=== PATIENT | male | born 1970 | race Caucasian/White ===

== ENCOUNTER 2021-09-11 10:31 | Inpatient (IN) | payer OTHER, SELFPAY ==
[2021-09-11 11:01] VITALS: BP 99/59; PULSE 92; RESP 18; TEMP 36.3; O2SAT 98; BMI 36.6
[2021-09-11 11:40] LABS: Basophils % 0.3 %; Eosinophils # 0.1 10^3/uL (0.0-0.8); Eosinophils % 0.6 %; Hematocrit 34.6 % (42.0-52.0); Hemoglobin 12.3 g/dL (11.7-16.6); Lymphocytes # 0.5 10^3/uL (0.8-4.8); Lymphocytes % 4.1 %; Mean Corpuscular HGB Conc 35.5 g/dL (30.0-36.0); Mean Corpuscular Hemoglobin 32.9 pg (28.0-34.0); Mean Corpuscular Volume 92.5 fl (80-94); Mean Platelet Volume 10.6 fL (7.4-10.4); Monocytes # 0.8 10^3/uL (0.2-0.9); Monocytes % 6.7 %; Neutrophils # 9.79 10^3/uL (1.8-7.7); Neutrophils % 86.9 %; Nucleated Red Blood Cells % 0 %; Platelet Count 147 10^3/cmm (130-400); Red Blood Count 3.74 10^6/uL (4.1-5.3); White Blood Count 11.3 10^3/uL (4.0-10.0)
--- NOTE | 2021-09-11 11:44 | ECG_ITS ---
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 Measurements Intervals [place] Rate: 94 P: 32 [place]: 180 QRS: -30 QRSD: 119 T: 9 QT: 376 QTc: 471 Interpretive Statements SINUS RHYTHM POSSIBLE ANTERIOR MYOCARDIAL INFARCTION , PROBABLY OLD [30 ms Q WAVE IN V3/V4, OR R < 0.2 mV IN V4] No previous ECG available for comparison Electronically Signed On 09-11-2021 13:00:27 CDT by Cyn Pringle M.D. [id number]
--- NOTE | 2021-09-11 11:45 | W.ED.GENADLT ---
Documented by User: Mando Vieyra MD 09/11/21 22:32 HPI - General Adult General: Chief complaint: General Medical Stated complaint: bloody stool and gums Time Seen by Provider: 09/11/21 11:36 History of Present Illness: 51-year-old presents due to reduced fluid intake. Reports blood in stool and bleeding from gums. Does report history of heavy alcohol intake. Reports recent weight loss. Denies any focal pain. Denies nausea vomiting or constipation. Reports reduced urine output. Denies dysuria. Denies chest pain or shortness of breath. Denies abdominal pain. Review of Systems Narrative: - CONSTITUTIONAL: As above - HEENT: Denies changes in vision and hearing. - RESPIRATORY: Denies SOB and cough. - CV: Denies palpitations and CP. - GI: Denies abdominal pain, nausea, vomiting and diarrhea. - : Denies dysuria and urinary frequency. - MSK: Denies myalgia and joint pain. - SKIN: Denies rash and pruritus. - NEUROLOGICAL: Denies headache, weakness, numbness and syncope. - PSYCHIATRIC: Denies suicidal ideation Physical Exam Narrative: EXAM NARRATIVE: - GENERAL: Alert and oriented x 3. No acute distress. Well-nourished. - EYES: EOMI. Anicteric. - HENT: Atraumatic, no C-spine tenderness. Moist mucous membranes. No scleral icterus. No cervical lymphadenopathy. - LUNGS: Clear to auscultation bilaterally. No accessory muscle use. Equal lung sounds bilaterally. No respiratory distress. - CARDIOVASCULAR: Regular rate and rhythm. No murmur. No JVD. - ABDOMEN: Soft, non-tender and mildly distended with fluid wave. Negative CVA tenderness bilaterally, no rebound or guarding, negative Kang sign. No palpable masses. - EXTREMITIES: No edema. Non-tender. - SKIN: Jaundice, no rashes or lesions. Warm. - NEUROLOGIC: No meningismus or focal neurological deficits. CN II-XII grossly intact. - PSYCHIATRIC: Cooperative. Appropriate mood and affect. Course Vital Signs: Vital signs: Vital Signs Temperature 97.3 F L 09/11/21 11:01 Pulse Rate 66 09/11/21 20:27 Respiratory Rate 24 H 09/11/21 20:27 Blood Pressure 102/47 09/11/21 22:32 Pulse Oximetry 92 09/11/21 20:27 [facility] - General Adult Medical Decision Making 51-year-old presents due to malaise and jaundice. There is concern for hepatorenal syndrome. 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 He has a bilirubin in the 30s and his creatinine is 7. Discussed with hepatology in ICU at [facility] and they will accept transfer but do expect a significant delay in obtaining a bed. Discussed with her facilities in the area however no other facilities with hepatology service are able to accept the patient. He has a sodium level of 123 but does not have any seizures or altered mental status. Do not believe hypertonic saline is required at this time. Hospitalist and nephrology consulted for medical management while in the ER. Patient signed out to Dr. Layne. Lab Data : 09/11/21 11:20 09/11/21 11:20 Radiology Impressions Abdomen Ultrasound 09/11/21 13:01 IMPRESSION: 1. Hepatomegaly and hepatic steatosis. 2. Contracted gallbladder with thick kwong and no stones 3. Negative right kidney 4. Cinthya hepatic ascites Abdomen/Pelvis CT 09/11/21 17:31 IMPRESSION: 1. Moderate ascites. 2. Hepatosplenomegaly. 3. Dilated portal vein and small varices consistent with portal hypertension. Chest X-Ray 09/11/21 17:51 IMPRESSION: No acute findings. Laboratory Results WBC 11.3 10^3/uL (4.0-10.0) H 09/11/21 11:20 RBC 3.74 10^6/uL (4.1-5.3) L 09/11/21 11:20 Hgb 12.3 g/dL (11.7-16.6) 09/11/21 11:20 Hct 34.6 % (42.0-52.0) L 09/11/21 11:20 MCV 92.5 fl (80-94) 09/11/21 11:20 MCH 32.9 pg (28.0-34.0) 09/11/21 11:20 MCHC 35.5 g/dL (30.0-36.0) 09/11/21 11:20 RDW 15.0 % (12.1-15.1) 09/11/21 11:20 Plt Count 147 10^3/cmm (130-400) 09/11/21 11:20 MPV 10.6 fL (7.4-10.4) H 09/11/21 11:20 Neut % (Auto) 86.9 % 09/11/21 11:20 Lymph % (Auto) 4.1 % 09/11/21 11:20 [place] % (Auto) 6.7 % 09/11/21 11:20 Eos % (Auto) 0.6 % 09/11/21 11:20 Baso % (Auto) 0.3 % 09/11/21 11:20 Neut # (Auto) 9.79 10^3/uL (1.8-7.7) H 09/11/21 11:20 Lymph # (Auto) 0.5 10^3/uL (0.8-4.8) L 09/11/21 11:20 [place] # (Auto) 0.8 10^3/uL (0.2-0.9) 09/11/21 11:20 Eos # (Auto) 0.1 10^3/uL (0.0-0.8) 09/11/21 11:20 Baso # (Auto) 0.0 10^3/uL (0.0-0.1) 09/11/21 11:20 Nucleated RBC % (auto) 0 % 09/11/21 11:20 Nucleated RBCs # 0.0 /100WBC 09/11/21 11:20 ESR 37 mm/hr (0-10) H 09/11/21 11:20 PT 19.90 SECONDS (12.1-14.9) H 09/11/21 11:20 INR 1.66 (0.8-1.2) H 09/11/21 11:20 APTT 47.4 SECONDS (23.9-36.7) H 09/11/21 11:20 APTT Cancelled 09/11/21 11:20 Sodium 123 mmol/L (136-145) L 09/11/21 11:20 Potassium 4.4 mmol/L (3.5-5.1) 09/11/21 11:20 Chloride 86 mmol/L (98-107) L 09/11/21 11:20 Carbon Dioxide 15 mmol/L (22-29) L 09/11/21 11:20 Anion Gap 26.4 (5-19) H 09/11/21 11:20 BUN 100 mg/dL (6-20) H* 09/11/21 11:20 Creatinine 7.0 mg/dL (0.7-1.2) H* 09/11/21 11:20 GFR Calculation 8.3 mL/min (90-130) L 09/11/21 11:20 Glucose 204 mg/dL (65-115) H 09/11/21 11:20 Estimat Average Glucose 180 09/11/21 11:20 Hemoglobin A1c 7.9 % (4.0-6.0) H 09/11/21 11:20 Calculated Osmolality 293 mOsm/kg (285-295) 09/11/21 11:20 Lactic Acid 1.7 mmol/L (0.5-2.2) 09/11/21 18:39 Uric Acid 14.2 mg/dL (3.4-7.0) H 09/11/21 11:20 Calcium 7.8 mg/dL (8.5-10.5) L 09/11/21 11:20 Ferritin 814 ng/mL (30-400) H 09/11/21 11:20 Total Bilirubin 33.9 mg/dL (0.15-1.2) H* 09/11/21 11:20 AST 118 U/L (0-40) H 09/11/21 11:20 ALT 53 U/L (0-41) H 09/11/21 11:20 Alkaline Phosphatase 570 IU/L (40-130) H 09/11/21 11:20 Ammonia 53 umol/L (16-60) 09/11/21 11:20 Creatine Kinase 23 U/L (39-308) L 09/11/21 11:20 Troponin T Baseline 23 ng/L (0-15) H 09/11/21 11:20 Troponin T 120 Minute 20.88 ng/L (0-15) H 09/11/21 13:05 Delta Troponin T -2.12 ABS# (0-10) L 09/11/21 13:05 Troponin T Hi Sens 6Hr 21.76 ng/L (0-15) H 09/11/21 17:30 Troponin T Hi Sens 6Hr Delta -1.24 ng/L (0-12) L 09/11/21 17:30 C-Reactive Protein 77.1 mg/L (0.0-4.9) H 09/11/21 17:30 Total Protein 6.2 g/dL (6.6-8.7) L 09/11/21 11:20 Albumin 2.5 g/dL (3.5-5.2) L 09/11/21 11:20 Globulin 3.7 g/dL (1.3-4.6) 09/11/21 11:20 Triglycerides 338 mg/dL (0-150) H 09/11/21 11:20 Cholesterol 162 mg/dL (0-200) 09/11/21 11:20 LDL Cholesterol, Calc 89 mg/dL (50-129) 09/11/21 11:20 HDL Cholesterol 5 mg/dL (60-100) L 09/11/21 11:20 LDL/HDL Ratio 17.80 RATIO (0.00-3.22) H 09/11/21 11:20 Cholesterol/HDL Ratio 32.40 mg/dL (1.0-5.00) H 09/11/21 11:20 Lipase 68 U/L (13-60) H 09/11/21 11:20 Procalcitonin 4.00 ng/mL (0-0.5) H 09/11/21 17:30 TSH 2.58 uIU/mL (0.27-4.20) 09/11/21 11:20 Urine Color Angie (Yellow) 09/11/21 12:10 Urine Appearance Sl hazy (CLEAR) 09/11/21 12:10 Urine pH 5 (5-7) 09/11/21 12:10 Ur Specific [place] 1.020 (1.005-1.030) 09/11/21 12:10 Urine Protein Neg (Negative) 09/11/21 12:10 Urine Glucose (UA) Trace (Normal) H 09/11/21 12:10 Urine Ketones Negative (Negative) 09/11/21 12:10 Urine Blood 2+ (Negative) H 09/11/21 12:10 Urine Nitrate Negative (Negative) 09/11/21 12:10 Urine Bilirubin 3+ (Negative) H 09/11/21 12:10 Urine Urobilinogen 4 mg/dL (Negative) H 09/11/21 12:10 Ur Leukocyte Esterase Negative (Negative) 09/11/21 12:10 Urine RBC 0-4 /hpf (0-2) H 09/11/21 12:10 Urine WBC 0-4 /hpf (0-5) H 09/11/21 12:10 Ur Squamous Epith Cells 0-4 /hpf (0-5) H 09/11/21 12:10 Amorphous Sediment 1+ /hpf 09/11/21 12:10 Urine Bacteria 1+ /hpf (NONE) H 09/11/21 12:10 Coarse Granular Casts 10-15 /lpf H 09/11/21 12:10 U Random Total Protein 54 mg/dL 09/11/21 12:10 Ur Random Sodium 20 mmol/L 09/11/21 12:10 Urine Creatinine 148 mg/dL (39-259) 09/11/21 12:10 Protein/Creatinin Ratio 0.36 mg/mg CR 09/11/21 12:10 Salicylates < 0.3 mg/dL (3-10) L 09/11/21 17:30 Urine Opiates Screen Negative ng/mL (Negative) 09/11/21 12:10 Acetaminophen < 5.0 ug/mL (10-30) L 09/11/21 17:30 Ur Barbiturates Screen Negative ng/mL (Negative) 09/11/21 12:10 Ur Phencyclidine Scrn Negative ng/mL (Negative) 09/11/21 12:10 Ur Amphetamines Screen Negative ng/mL (Negative) 09/11/21 12:10 U Benzodiazepines Scrn Negative ng/mL (Negative) 09/11/21 12:10 Urine Cocaine Screen Negative ng/mL (Negative) 09/11/21 12:10 U Marijuana (THC) Screen Negative ng/mL (Negative) 09/11/21 12:10 Ethyl Alcohol < 10 mg/dL (0-10) 09/11/21 11:20 Ethyl Alcohol Cancelled 09/11/21 11:20 Hepatitis A IgM Ab Non-reactive (Nonreactive) 09/11/21 11:20 Hep Bs Antigen Non-reactive (Nonreactive) 09/11/21 11:20 Hep B Core IgM Ab Non-reactive (Nonreactive) 09/11/21 11:20 Hepatitis C Antibody Non-reactive (Nonreactive) 09/11/21 11:20 HIV 1&2 Ab & HIV 1 Ag Non-reactive (Non-Reactiv) 09/11/21 11:20 HIV 1&2 Antibody Non-reactive (Non-Reactiv) 09/11/21 11:20 EKG Data EKG 1: Computer generated interpretation: Abdomen Ultrasound 09/11/21 13:01 IMPRESSION: 1. Hepatomegaly and hepatic steatosis. 2. Contracted gallbladder with thick kwong and no stones 3. Negative right kidney 4. Cinthya hepatic ascites Abdomen/Pelvis CT 09/11/21 17:31 IMPRESSION: 1. Moderate ascites. 2. Hepatosplenomegaly. 3. Dilated portal vein and small varices consistent with portal hypertension. Chest X-Ray 09/11/21 17:51 IMPRESSION: No acute findings. Other EKG comments: Sinus rhythm, rate of 94, no sign of acute ischemia or other acute abnormality. Discharge Plan Discharge Patient Disposition: Admitted As Inpatient Admit Provider: Marni Mosquera Clinical Impression: Hepatorenal syndrome Condition: Critical Coding Level of Care Code ED Rubber Calender Helper for Chg Fwd Documented by User: Turner Layne DO 09/12/21 02:26 HPI - General Adult General: Chief complaint: General Medical Stated complaint: bloody stool and gums Time Seen by Provider: 09/11/21 11:36 Course Vital Signs: Vital signs: Vital Signs Temperature 97.3 F L 09/11/21 11:01 Pulse Rate 66 09/11/21 20:27 Respiratory Rate 24 H 09/11/21 20:27 Blood Pressure 102/47 09/11/21 22:32 Pulse Oximetry 92 09/11/21 20:27 MDM - General Adult Medical Decision Making 51-year-old presents due to malaise and jaundice. There is concern for hepatorenal syndrome. 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 He has a bilirubin in the 30s and his creatinine is 7. Discussed with hepatology in ICU at [facility] and they will accept transfer but do expect a significant delay in obtaining a bed. Discussed with her facilities in the area however no other facilities with hepatology service are able to accept the patient. He has a sodium level of 123 but does not have any seizures or altered mental status. Do not believe hypertonic saline is required at this time. Hospitalist and nephrology consulted for medical management while in the ER. Patient signed out to Dr. Layne. 51-year-old male checked out to me at shift change by the previous physician. This gentleman has hepatorenal syndrome. His mortality is high. We spoke with [facility] again. He is #28 in line for an ICU bed there. We made calls to [facility] in [place], [facility], and others. No beds are available. I spoke with our hospitalist team. She had a long conversation with the patient and his . They are prepared for mortal outcome. They wish not to be transferred. They wish to be admitted to this facility, for stabilization. If his parameters and clinical status or not improving, he has agreed to go home on hospice. Hospitalist is writing admission orders on this patient accordingly. Lab Data : 09/11/21 11:20 09/11/21 11:20 Radiology Impressions Abdomen Ultrasound 09/11/21 13:01 IMPRESSION: 1. Hepatomegaly and hepatic steatosis. 2. Contracted gallbladder with thick kwong and no stones 3. Negative right kidney 4. Cinthya hepatic ascites Abdomen/Pelvis CT 09/11/21 17:31 IMPRESSION: 1. Moderate ascites. 2. Hepatosplenomegaly. 3. Dilated portal vein and small varices consistent with portal hypertension. Chest X-Ray 09/11/21 17:51 IMPRESSION: No acute findings. Laboratory Results WBC 11.3 10^3/uL (4.0-10.0) H 09/11/21 11:20 RBC 3.74 10^6/uL (4.1-5.3) L 09/11/21 11:20 Hgb 12.3 g/dL (11.7-16.6) 09/11/21 11:20 Hct 34.6 % (42.0-52.0) L 09/11/21 11:20 MCV 92.5 fl (80-94) 09/11/21 11:20 MCH 32.9 pg (28.0-34.0) 09/11/21 11:20 MCHC 35.5 g/dL (30.0-36.0) 09/11/21 11:20 RDW 15.0 % (12.1-15.1) 09/11/21 11:20 Plt Count 147 10^3/cmm (130-400) 09/11/21 11:20 MPV 10.6 fL (7.4-10.4) H 09/11/21 11:20 Neut % (Auto) 86.9 % 09/11/21 11:20 Lymph % (Auto) 4.1 % 09/11/21 11:20 [place] % (Auto) 6.7 % 09/11/21 11:20 Eos % (Auto) 0.6 % 09/11/21 11:20 Baso % (Auto) 0.3 % 09/11/21 11:20 Neut # (Auto) 9.79 10^3/uL (1.8-7.7) H 09/11/21 11:20 Lymph # (Auto) 0.5 10^3/uL (0.8-4.8) L 09/11/21 11:20 [place] # (Auto) 0.8 10^3/uL (0.2-0.9) 09/11/21 11:20 Eos # (Auto) 0.1 10^3/uL (0.0-0.8) 09/11/21 11:20 Baso # (Auto) 0.0 10^3/uL (0.0-0.1) 09/11/21 11:20 Nucleated RBC % (auto) 0 % 09/11/21 11:20 Nucleated RBCs # 0.0 /100WBC 09/11/21 11:20 ESR 37 mm/hr (0-10) H 09/11/21 11:20 PT 19.90 SECONDS (12.1-14.9) H 09/11/21 11:20 INR 1.66 (0.8-1.2) H 09/11/21 11:20 APTT 47.4 SECONDS (23.9-36.7) H 09/11/21 11:20 APTT Cancelled 09/11/21 11:20 Sodium 123 mmol/L (136-145) L 09/11/21 11:20 Potassium 4.4 mmol/L (3.5-5.1) 09/11/21 11:20 Chloride 86 mmol/L (98-107) L 09/11/21 11:20 Carbon Dioxide 15 mmol/L (22-29) L 09/11/21 11:20 Anion Gap 26.4 (5-19) H 09/11/21 11:20 BUN 100 mg/dL (6-20) H* 09/11/21 11:20 Creatinine 7.0 mg/dL (0.7-1.2) H* 09/11/21 11:20 GFR Calculation 8.3 mL/min (90-130) L 09/11/21 11:20 Glucose 204 mg/dL (65-115) H 09/11/21 11:20 Estimat Average Glucose 180 09/11/21 11:20 Hemoglobin A1c 7.9 % (4.0-6.0) H 09/11/21 11:20 Calculated Osmolality 293 mOsm/kg (285-295) 09/11/21 11:20 Lactic Acid 1.7 mmol/L (0.5-2.2) 09/11/21 18:39 Uric Acid 14.2 mg/dL (3.4-7.0) H 09/11/21 11:20 Calcium 7.8 mg/dL (8.5-10.5) L 09/11/21 11:20 Ferritin 814 ng/mL (30-400) H 09/11/21 11:20 Total Bilirubin 33.9 mg/dL (0.15-1.2) H* 09/11/21 11:20 AST 118 U/L (0-40) H 09/11/21 11:20 ALT 53 U/L (0-41) H 09/11/21 11:20 Alkaline Phosphatase 570 IU/L (40-130) H 09/11/21 11:20 Ammonia 53 umol/L (16-60) 09/11/21 11:20 Creatine Kinase 23 U/L (39-308) L 09/11/21 11:20 Troponin T Baseline 23 ng/L (0-15) H 09/11/21 11:20 Troponin T 120 Minute 20.88 ng/L (0-15) H 09/11/21 13:05 Delta Troponin T -2.12 ABS# (0-10) L 09/11/21 13:05 Troponin T Hi Sens 6Hr 21.76 ng/L (0-15) H 09/11/21 17:30 Troponin T Hi Sens 6Hr Delta -1.24 ng/L (0-12) L 09/11/21 17:30 C-Reactive Protein 77.1 mg/L (0.0-4.9) H 09/11/21 17:30 Total Protein 6.2 g/dL (6.6-8.7) L 09/11/21 11:20 Albumin 2.5 g/dL (3.5-5.2) L 09/11/21 11:20 Globulin 3.7 g/dL (1.3-4.6) 09/11/21 11:20 Triglycerides 338 mg/dL (0-150) H 09/11/21 11:20 Cholesterol 162 mg/dL (0-200) 09/11/21 11:20 LDL Cholesterol, Calc 89 mg/dL (50-129) 09/11/21 11:20 HDL Cholesterol 5 mg/dL (60-100) L 09/11/21 11:20 LDL/HDL Ratio 17.80 RATIO (0.00-3.22) H 09/11/21 11:20 Cholesterol/HDL Ratio 32.40 mg/dL (1.0-5.00) H 09/11/21 11:20 Lipase 68 U/L (13-60) H 09/11/21 11:20 Procalcitonin 4.00 ng/mL (0-0.5) H 09/11/21 17:30 TSH 2.58 uIU/mL (0.27-4.20) 09/11/21 11:20 Urine Color Angie (Yellow) 09/11/21 12:10 Urine Appearance Sl hazy (CLEAR) 09/11/21 12:10 Urine pH 5 (5-7) 09/11/21 12:10 Ur Specific [place] 1.020 (1.005-1.030) 09/11/21 12:10 Urine Protein Neg (Negative) 09/11/21 12:10 Urine Glucose (UA) Trace (Normal) H 09/11/21 12:10 Urine Ketones Negative (Negative) 09/11/21 12:10 Urine Blood 2+ (Negative) H 09/11/21 12:10 Urine Nitrate Negative (Negative) 09/11/21 12:10 Urine Bilirubin 3+ (Negative) H 09/11/21 12:10 Urine Urobilinogen 4 mg/dL (Negative) H 09/11/21 12:10 Ur Leukocyte Esterase Negative (Negative) 09/11/21 12:10 Urine RBC 0-4 /hpf (0-2) H 09/11/21 12:10 Urine WBC 0-4 /hpf (0-5) H 09/11/21 12:10 Ur Squamous Epith Cells 0-4 /hpf (0-5) H 09/11/21 12:10 Amorphous Sediment 1+ /hpf 09/11/21 12:10 Urine Bacteria 1+ /hpf (NONE) H 09/11/21 12:10 Coarse Granular Casts 10-15 /lpf H 09/11/21 12:10 U Random Total Protein 54 mg/dL 09/11/21 12:10 Ur Random Sodium 20 mmol/L 09/11/21 12:10 Urine Creatinine 148 mg/dL (39-259) 09/11/21 12:10 Protein/Creatinin Ratio 0.36 mg/mg CR 09/11/21 12:10 Salicylates < 0.3 mg/dL (3-10) L 09/11/21 17:30 Urine Opiates Screen Negative ng/mL (Negative) 09/11/21 12:10 Acetaminophen < 5.0 ug/mL (10-30) L 09/11/21 17:30 Ur Barbiturates Screen Negative ng/mL (Negative) 09/11/21 12:10 Ur Phencyclidine Scrn Negative ng/mL (Negative) 09/11/21 12:10 Ur Amphetamines Screen Negative ng/mL (Negative) 09/11/21 12:10 U Benzodiazepines Scrn Negative ng/mL (Negative) 09/11/21 12:10 Urine Cocaine Screen Negative ng/mL (Negative) 09/11/21 12:10 U Marijuana (THC) Screen Negative ng/mL (Negative) 09/11/21 12:10 Ethyl Alcohol < 10 mg/dL (0-10) 09/11/21 11:20 Ethyl Alcohol Cancelled 09/11/21 11:20 Hepatitis A IgM Ab Non-reactive (Nonreactive) 09/11/21 11:20 Hep Bs Antigen Non-reactive (Nonreactive) 09/11/21 11:20 Hep B Core IgM Ab Non-reactive (Nonreactive) 09/11/21 11:20 Hepatitis C Antibody Non-reactive (Nonreactive) 09/11/21 11:20 HIV 1&2 Ab & HIV 1 Ag Non-reactive (Non-Reactiv) 09/11/21 11:20 HIV 1&2 Antibody Non-reactive (Non-Reactiv) 09/11/21 11:20 EKG Data EKG 1: Computer generated interpretation: Abdomen Ultrasound 09/11/21 13:01 IMPRESSION: 1. Hepatomegaly and hepatic steatosis. 2. Contracted gallbladder with thick kwong and no stones 3. Negative right kidney 4. Cinthya hepatic ascites Abdomen/Pelvis CT 09/11/21 17:31 IMPRESSION: 1. Moderate ascites. 2. Hepatosplenomegaly. 3. Dilated portal vein and small varices consistent with portal hypertension. Chest X-Ray 09/11/21 17:51 IMPRESSION: No acute findings. Discharge Plan Discharge Patient Disposition: Admitted As Inpatient Admit Provider: Marni Mosquera Clinical Impression: Hepatorenal syndrome Condition: Critical Coding Level of Care Code ED Rubber Calender Helper for Aneta Farias
[2021-09-11 12:12] LABS: Ammonia 53 umol/L (16-60)
[2021-09-11 12:13] LABS: INR 1.66 (0.8-1.2)
[2021-09-11 12:14] LABS: Partial Thromboplastin Time 47.4 SECONDS (23.9-36.7)
[2021-09-11 12:16] LABS: Alanine Aminotransferase 53 U/L (0-41); Albumin Level 2.5 g/dL (3.5-5.2); Alkaline Phosphatase 570 IU/L (40-130); Anion Gap 26.4 (5-19); Aspartate Amino Transferase 118 U/L (0-40); Calcium 7.8 mg/dL (8.5-10.5); Carbon Dioxide 15 mmol/L (22-29); Chloride 86 mmol/L (98-107); Globulin 3.7 g/dL (1.3-4.6); Glomerular Filtration Rate 8.3 mL/min (90-130); Glucose 204 mg/dL (65-115); Lipase 68 U/L (13-60); Osmolality Calculated 293 mOsm/kg (285-295); Potassium 4.4 mmol/L (3.5-5.1); Sodium 123 mmol/L (136-145); Total Protein 6.2 g/dL (6.6-8.7)
[2021-09-11 12:18] LABS: Troponin(5th) Baseline 23 ng/L (0-15)
[2021-09-11 12:30] LABS: Alcohol Level < 10 mg/dL (0-10)
[2021-09-11 12:31] LABS: Blood Urea Nitrogen 100 mg/dL (6-20); Total Bilirubin 33.9 mg/dL (0.15-1.2)
--- NOTE | 2021-09-11 13:01 | USR_ITS ---
PROCEDURE INFORMATION: Exam: US Abdomen, Limited; Right Upper Quadrant Exam date and time: 09/11/2021 1:18 PM Age: 51 years old Clinical indication: Abdominal pain; Acute; Additional info: Liver failure TECHNIQUE: Imaging protocol: Real time ultrasound of the abdomen with image documentation. Limited exam focused on the right upper quadrant. COMPARISON: No relevant prior studies available. FINDINGS: Liver: There is diffuse increased echogenicity consistent with hepatic steatosis. The liver span is 22 cm consistent with hepatomegaly. No masses. There is moderate volume Cinthya hepatic ascites. Gallbladder: Contracted No gallstones. GB wall measures 5.6 mm. Negative Kang Biliary ducts: Normal. No stones. CBD 6 mm Pancreas: Visualized pancreas is unremarkable. Right kidney: Normal. No mass. No hydronephrosis. 11.8 cm x 6.3 cm x 6.8 cm US/US abdomen limited [id number] IMPRESSION: 1. Hepatomegaly and hepatic steatosis. 2. Contracted gallbladder with thick kwong and no stones 3. Negative right kidney 4. Cinthya hepatic ascites
[2021-09-11 13:11] LABS: Bilirubin Urine 3+ (Negative); Blood Urine 2+ (Negative); Glucose Urine UA Trace (Normal); Ketones Urine Negative (Negative); Leukocyte Esterase Urine Negative (Negative); Nitrate Urine Negative (Negative); Protein Urine Neg (Negative); RBC Urine 0-4 /hpf (0-2); Urine Appearance SL Hazy (CLEAR); Urine Color Amber (Yellow); Urobilinogen Urine 4 mg/dL (Negative); pH Urine 5 (5-7)
[2021-09-11 13:12] LABS: Add Urine Culture? No; Amorphous Sediment Urine 1+ /hpf; Bacteria Urine 1+ /hpf; Squamous Epithelial Cell Urine 0-4 /hpf (0-5); WBC Urine 0-4 /hpf (0-5)
--- NOTE | 2021-09-11 13:44 | ECG_ITS ---
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 Measurements Intervals [place] Rate: 92 P: 30 GA: 196 QRS: -24 QRSD: 121 T: 16 QT: 378 QTc: 469 Interpretive Statements SINUS RHYTHM POSSIBLE ANTERIOR MYOCARDIAL INFARCTION , PROBABLY OLD [30 ms Q WAVE IN V3/V4, OR R < 0.2 mV IN V4] Compared to ECG 09/11/2021 11:49:11 No significant changes Electronically Signed On 09-12-2021 21:33:37 CDT by Cyn Pringle M.D. [id number]
[2021-09-11 13:57] LABS: Troponin 5 2HR 20.88 ng/L (0-15)
[2021-09-11 14:03] LABS: Troponin 5 2HR Delta -2.12 ABS# (0-10)
[2021-09-11 15:39] VITALS: BP 106/62; PULSE 92; RESP 18; O2SAT 99
--- NOTE | 2021-09-11 17:31 | CTR_ITS ---
PROCEDURE INFORMATION: Exam: CT Abdomen And Pelvis Without Contrast Exam date and time: 09/11/2021 7:03 PM Age: 51 years old Clinical indication: Condition or disease; Liver condition; Other: Jaundice; Additional info: Liver failure TECHNIQUE: Imaging protocol: Computed tomography of the abdomen and pelvis without contrast. Radiation optimization: All CT scans at this facility use at least one of these dose optimization techniques: automated exposure control; mA and/or kV adjustment per patient size (includes targeted exams where dose is matched to clinical indication); or iterative reconstruction. COMPARISON: US abdomen limited [id number] 09/11/2021 1:18 PM RADIATION DOSE METRICS: Total DLP (mGy-cm): FINDINGS: Lungs: Lung bases are clear. Mediastinal space: There are small paraesophageal and gastric varices. There are small mesenteric varices. Liver: The liver is moderately enlarged. There is no focal liver abnormality. Gallbladder and bile ducts: There is high attenuation material within the gallbladder lumen consistent with sludge. There is no intrahepatic or extrahepatic bile duct dilation. Pancreas: The pancreas is unremarkable. Spleen: The spleen is markedly enlarged. Adrenal glands: The adrenal glands are unremarkable. Kidneys and ureters: Nonobstructive stones are seen in both kidneys. There is no hydronephrosis or ureteral dilation. Stomach and bowel: The stomach is decompressed, preventing meaningful evaluation of wall thickness. The small bowel is nondilated. The colon is unremarkable. Appendix: The appendix is normal. Intraperitoneal space: Moderate ascites. There is no free air or significant intraperitoneal free fluid. Vasculature: There is mild aortic atherosclerotic disease. Retroaortic left renal vein incidentally noted. The portal vein is dilated measuring 23 mm diameter suggesting portal hypertension. Splenic and superior mesenteric veins are also dilated. Lymph nodes: There is no lymphadenopathy in the retroperitoneum, mesentery, pelvis or inguinal regions. Urinary bladder: The urinary bladder is decompressed, preventing meaningful evaluation of wall thickness. Reproductive: The prostate and seminal vesicles are unremarkable. Bones/joints: Bones are unremarkable. Soft tissues: The abdominal wall is intact. CT/CT abdomen pelvis wo con [id number] IMPRESSION: 1. Moderate ascites. 2. Hepatosplenomegaly. 3. Dilated portal vein and small varices consistent with portal hypertension.
--- NOTE | 2021-09-11 17:44 | ECG_ITS ---
[facility] Test Date: 2021-09-11 Pat Name: Carmelo Bahena Department: Room: Gender: Male Senior Mechanical Development Engineer: : 1970 Requested By: Mando Vieyra Order Number: [id number] Maggie MD: Cyn Pringle M.D. Measurements Intervals [place] Rate: 93 P: 38 UT: 205 QRS: -30 QRSD: 118 T: 15 QT: 378 QTc: 471 Interpretive Statements SINUS RHYTHM POSSIBLE ANTERIOR MYOCARDIAL INFARCTION , PROBABLY OLD [30 ms Q WAVE IN V3/V4, OR R < 0.2 mV IN V4] Compared to ECG 09/11/2021 13:03:30 No significant changes Electronically Signed On 09-12-2021 21:32:39 CDT by Cyn Pringle M.D. [id number]
--- NOTE | 2021-09-11 17:50 | P.CONIM_ITS ---
Providers/Reason For Consult Consulting Physician/Specialty*: emergency room Reason for Consult*: medical managment History of Present Illness History of Present Illness Carmelo Bahena is a 51 year old male with a past medical history of alcoholism, who has not seen a physician in a long time, presents to [facility] due to feeling unwell, and jaundiced appearing. Patient tells me that he usually has a shot of alcohol a day, his last drink was this morning, he tells me that he is here in the hospital because he has been feeling well, and this morning he is suddenly became jaundice, felt nauseous, poor appetite so he came here to the hospital. No fevers, no chills, he has received both COVID vaccines. No history of IV drug use, no history of hepatitis C, no history of liver disease, no family history of liver disease. He tells me that he has a good heart, no personal history of CAD. No history of smoking, history of COPD. No distress hypertension. No history of kidney disease. No history of diabetes. No recent travel. Review of Systems Const: Denies: fever(s) Eyes: Denies: change in vision ENMT: Denies: nasal congestion Resp: Denies: dyspnea, productive cough, non-productive cough or wheezing GI: Denies: abdominal pain, nausea or vomiting : Denies: dysuria Musc: Denies: back pain Skin/Breast: Denies: rash Neuro: Denies: dizziness Psych: Denies: anxiety Endo: Denies: polyuria Medications/Allergies Allergies Allergy/AdvReac Type Severity Reaction Status Date / Time No Known Allergies Allergy Verified 09/11/21 11:01 Vitals/I&O/Wt Last Vital Signs Temp 97.3 F L 09/11/21 11:01 Pulse 92 09/11/21 15:39 Resp 18 09/11/21 15:39 BP 106/62 09/11/21 15:39 Pulse Ox 99 09/11/21 15:39 Weight last 48 hrs Weight 122.47 kg Physical Exam Const: COMMON NORMALS: no acute distress and patient oriented x3 HENMT: COMMON NORMALS: normocephalic HEAD & SCALP: normocephalic Eye: OTHER: jaindice appearing, scleral icterus Neck/C-Spine: COMMON NORMALS: no JVD Resp: COMMON NORMALS: normal respiratory effort, No retractions, No use of accessory muscles and clear to auscultation bilaterally AUSCULTATION: clear to auscultation bilaterally Cardio: COMMON NORMALS: no JVD, regular rate, regular rhythm, S1 normal heart sound present and S2 normal heart sound present RATE: regular rate RHYTHM: regular rhythm HEART SOUNDS: S1 normal heart sound present and S2 normal heart sound present GI: COMMON NORMALS: Normal to inspection, nondistended, normoactive bowel sounds present, Soft to palpation, non-tender, no masses and no bruits PALPATION: Yes Soft to palpation, Yes Hepatosplenomegaly present and Yes Ascites present Extremity: COMMON NORMALS: capillary refill normal, no clubbing, cyanosis or edema, no calf tenderness and no pedal edema Neuro: COMMON NORMALS: patient oriented x3 Psych: COMMON NORMALS: mental status grossly normal Data : 09/11/21 11:20 09/11/21 11:20 A&P Assessment and plan (1) Acute liver failure: Status: Acute Plan Acute failure -With elevated bilirubin, jaundice -Elevated INR -Hypoalbuminemia -Hyponatremia -Hepatorenal syndrome -Dehydration -History of alcoholism -Will order urine drug screen, AMA, VANNESA, ferritin, acute hep panel, HIV, CPK -Abdomen is distended, does have ascites, start Zosyn for possible SBP although unlikely -History of alcoholism, avoid blood thinners, avoid nephrotoxic agents -Nephrology consulted for hepatorenal syndrome, creatinine 7, no urgent need for dialysis but he might require CRRT at some point -Midodrine, IV fluids, albumin -CT scan abdomen pelvis -Cardiac echocardiogram -Will stabilize, in order to be transferred to [facility] -Full code -SCDs for DVT prophylaxis Consult Attestations Medical Necessity Statement: Patient requires hospitalization for acute liver failure will be transferred to [facility], hospitalist team was called for medical management Coding Level of Care Code Acute Tip Puncher for [facility] Diagnoses Acute liver failure K72.00
--- NOTE | 2021-09-11 17:51 | XRR_ITS ---
PROCEDURE INFORMATION: Exam: XR Chest Exam date and time: 09/11/2021 6:06 PM Age: 51 years old Clinical indication: Shortness of breath; Additional info: SOB TECHNIQUE: Imaging protocol: Radiologic exam of the chest. Views: 1 view. COMPARISON: No relevant prior studies available. FINDINGS: Lungs: Low lung volumes. There is no consolidation. Pleural spaces: Unremarkable. No pleural effusion. No pneumothorax. Heart/Mediastinum: There is mild enlargement of the cardiac silhouette. Bones/joints: Bones are unremarkable. XR/XR chest 1V portable [id number] IMPRESSION: No acute findings.
[2021-09-11] MEDS: pantoprazole 40 mg SDV IVP (18:01)
[2021-09-11] MEDS: dextrose 5%-sod chloride 0.9% 1,000 ML 50 ML IV (18:02)
[2021-09-11] MEDS: piperacillin-tazobactam 3.375 GM in sodium chloride 0.9% (plus) 50 ML IV (18:02)
--- NOTE | 2021-09-11 18:03 | PM.CONSULT ---
Providers/Reason For Consult Consulting Physician/Specialty*: Nephro Reason for Consult*: Renal Failure History of Present Illness History of Present Illness Thank for consultation, today had the pleasure of reviewing this very pleasant 51-year-old gentleman in the presence of his for evaluation of renal failure in the setting of liver failure. He has a long history of very heavy alcohol use, he drank alcohol this morning. Over the last 1 month he has felt very weak, 2 weeks ago he first noticed jaundice. He stopped urinating roughly 2 weeks ago as well. He has been out of insurance, his insurance finally got approved this week, he was due to see his primary care doctor next week, however, due to his weakness becoming too profound he is now presenting to the hospital. On arrival here he was found to have a serum creatinine of 7. No known history of acute or chronic kidney disease, has never seen a kidney specialist or required hemodialysis. No extremity edema. He does have ascites. No other hypervolemic symptoms. No other overt uremic symptoms. He is obviously not enrolled in a liver transplant program. No history of hepatitis. No other cause of potential liver damage i.e. Madhav's disease etc. No other systemic, chronic medical conditions. Blood pressure is soft today. Medications/Allergies Allergies Allergy/AdvReac Type Severity Reaction Status Date / Time No Known Allergies Allergy Verified 09/11/21 11:01 Vitals/I&O/Wt Last Vital Signs Temp 97.3 F L 09/11/21 11:01 Pulse 92 09/11/21 15:39 Resp 18 09/11/21 15:39 BP 106/62 09/11/21 15:39 Pulse Ox 99 09/11/21 15:39 Weight last 48 hrs Weight 122.47 kg Physical Exam Narrative: Constitutional: Awake, comfortable HEENT: Wet mucosa, no jvp, icteric Lungs: Bilaterally clear without discernible wheeze or rales in all lung zones CVS: S1 S2, no murmurs Abdo: Soft, BS ok, ascites Ext 4: Minimal edema, peripheral perfusion with no cyanosis Neurological: Grossly non-focal Data : 09/11/21 11:20 09/11/21 11:20 A&P Assessment and plan (1) Acute liver failure: 1. Renal failure Fully consistent with hepatorenal syndrome in the setting of advanced liver damage. Will get urine sodium, urine creatinine, CPK, uric acid, TSH. Will give combination albumin, midodrine, octreotide. I had a vince discussion with him. He is not a candidate for dialysis. This will not be offered. Strict I's and O's Avoid usual nephrotoxic agents Dose medication for GFR less than 15 2. Advanced liver failure. I appreciate he is pending transfer to [place] for hepatology evaluation. As he drank this morning, he would not be a candidate for liver transplant. Would monitor for DTs, defer management to medical team for this. 3. Chemistry Hyponatremia, low bicarb. These are noncritical, simply need to be monitored for the time being. 4. Disposition I appreciate he will be transferred, however, at this time his mortality risk is extremely high I would consider palliative care evaluation as he would not be a hemodialysis or transplant candidate. His was at bedside, I answered all the questions to their satisfaction. Thank you for consultation, it is a pleasure to follow these cases with you Exam and interview performed with aid of bedside RN using telemedicine Time spent 20 min inc > 50% of time in face to face counseling Lavelle Polk MD [facility] [phone] Status: Acute Coding Level of Care Code Acute [employer] Associate for [facility] Diagnoses Acute liver failure K72.00
--- NOTE | 2021-09-11 18:06 | PC.NURSE ---
EKG done at 1800 and shown to ER doctor
[2021-09-11 18:08] LABS: Hepatitis A Antibody IgM Non-Reactive (Nonreactive); Hepatitis B Core IgM Non-Reactive (Nonreactive); Hepatitis B Surface Antigen Non-Reactive (Nonreactive); Hepatitis C Virus Antibody Non-Reactive (Nonreactive)
[2021-09-11] MEDS: midodrine 5 mg TABLET 10 MG PO ×2 (18:09→22:58)
[2021-09-11 18:10] LABS: Cholesterol 162 mg/dL (0-200); HDL Cholesterol 5 mg/dL (60-100); LDL Cholesterol Calculated 89 mg/dL (50-129); Thyroid Stimulating Hormone 2.58 uIU/mL (0.27-4.20); Triglycerides 338 mg/dL (0-150)
[2021-09-11 18:19] LABS: Troponin 5 6HR 21.76 ng/L (0-15); Troponin 5 6HR Delta -1.24 ng/L (0-12)
[2021-09-11 18:23] LABS: Estmated Average Glucose 180; Hemoglobin A1C 7.9 % (4.0-6.0)
[2021-09-11 18:28] LABS: Creatine Phosphokinase 23 U/L (39-308); Ferritin 814 ng/mL (30-400); Uric Acid 14.2 mg/dL (3.4-7.0)
[2021-09-11] MEDS: octreotide 100 mcg/mL SDV 200 MCG SUBCUT ×2 (18:30→23:07)
[2021-09-11] MEDS: albumin 12.5 GM/250 ML VIAL IV ×2 (18:30→22:58)
[2021-09-11 18:41] LABS: HIV 1 & 2 Antibody Non-Reactive (Non-Reactiv); HIV 1 & 2 Antigen Non-Reactive (Non-Reactiv)
[2021-09-11 18:44] LABS: Erythrocyte Sedimentation Rate 37 mm/hr (0-10)
[2021-09-11 18:50] LABS: C Reactive Protein 77.1 mg/L (0.0-4.9)
[2021-09-11 18:51] LABS: Acetaminophen < 5.0 ug/mL (10-30); Salicylate < 0.3 mg/dL (3-10)
[2021-09-11 19:01] LABS: Lactic Sepsis W/Reflex 1.7 mmol/L (0.5-2.2)
[2021-09-11 19:18] VITALS: BP 92/54; PULSE 70; RESP 27; O2SAT 93
[2021-09-11] MEDS: folic acid 1 MG, multivitamin inj 10 ML, thiamine 100 MG in sodium chloride 0.9% 1,000 ML 252.8 MG IV (20:06)
[2021-09-11 20:27] VITALS: BP 91/51; PULSE 66; RESP 24; O2SAT 92
[2021-09-11 21:25] LABS: Amphetamines Screen Urine Negative (Negative); Barbiturates Screen Urine Negative (Negative); Benzodiazepines Screen Urine Negative (Negative); Cocaine Screen Urine Negative (Negative); Opiate Screen Urine Negative (Negative); PCP Screen Urine Negative (Negative); THC Screen Urine Negative (Negative); Urine Creatinine 148 mg/dL (39-259); Urine Random Sodium 20 mmol/L
[2021-09-11 21:26] LABS: UPRO/UCREAT Ratio 0.36 mg/mg CR; Urine Protein Random 54 mg/dL
[2021-09-11 22:32] VITALS: BP 102/47
[2021-09-12] VITALS (15 sets, daily range): BP systolic 89–113; BP diastolic 42–64; PULSE 73–86; RESP 16–18; TEMP 36.4–36.6; O2SAT 90–96
--- NOTE | 2021-09-12 00:02 | USCV_ITS ---
Carmelo Bahena Age: 51 Gender: M : 1970 Exam Date: 09/12/2021 00:19 Ordering Phys: Joaquín Benjamin MD Technologist: Martín Gonzalez Exam Location: [facility] [place] Indication: NSTEMI BP: 111 / 59 HR: 82 Rhythm: Sinus Technical Quality: Adequate MEASUREMENTS (Male / Female) Normal Values 2D ECHO LV Diastolic Diameter PLAX 4.4 cm 4.2 - 5.9 / 3.9 - 5.3 cm LV Systolic Diameter PLAX 3.0 cm IVS Diastolic Thickness 1.4 cm 0.6 - 1.0 / 0.6 - 0.9 cm IVS Systolic Thickness 1.8 cm LVPW Diastolic Thickness 1.4 cm 0.6 - 1.0 / 0.6 - 0.9 cm LVPW Systolic Thickness 1.9 cm LVOT Diameter 2.0 cm LV Ejection Fraction 2D Teich 54.4 % LV Ejection Fraction MOD 2C 60.4 % LV Ejection Fraction 2C AL 59.1 % LA Diameter 3.6 cm LA Width 4.4 cm LA Height 4.3 cm RA Width 3.4 cm RA Height 4.5 cm Aorta at Sinotubular Diameter 3.1 cm M-MODE Aortic Annulus Diameter 3.7 cm LA Ao Ratio MM 1.1 MV E Point Septal Separation 0.3 cm DOPPLER AV Peak Velocity 150.8 cm/s LVOT Peak Velocity 86.0 cm/s AV Area Cont Eq vti 1.9 cm squared AV Area Cont Eq pk 1.8 cm squared MV Area PHT 2.5 cm squared Mitral E to A Ratio 0.8 MV E' Velocity 41.0 cm/s Mitral E to MV E' Ratio 4.9 Mitral E to LV E' Lateral Ratio 4.9 Mitral E to LV E' Septal Ratio 4.9 TR Peak Velocity 145.6 cm/s TR Peak Gradient 8.5 mmHg TR Mean Velocity 100.0 cm/s TR Mean Gradient 4.9 mmHg TR Velocity Time Integral 26.2 cm PV Peak Velocity 100.0 cm/s FINDINGS Left Ventricle Normal left ventricular size, systolic function and wall thickness. Although no diagnostic regional wall motion abnormality could be identified, this possibility cannot be completely excluded based on the study. Left ventricular ejection fraction is estimated at 60 %. Normal diastolic function. Right Ventricle Normal right ventricular size and systolic function. Right ventricular systolic pressure 13 mmHg. Right Atrium Normal right atrial size. Left Atrium Normal left atrial size. Mitral Valve Structurally normal mitral valve. No mitral valve stenosis. No significant mitral valve regurgitation. Aortic Valve Probably trileaflet aortic valve. No aortic valve stenosis. No aortic valve regurgitation. Tricuspid Valve Structurally normal tricuspid valve. Trace tricuspid valve regurgitation. Pulmonic Valve Pulmonic valve not well visualized. Pericardium No pericardial effusion. Aorta Upper normal sized aortic root and proximal ascending aorta. IVC Inferior vena cava not visualized. CONCLUSIONS 1. This is a technically difficult study. 2. Normal left ventricular size, systolic function and wall thickness. Although no diagnostic regional wall motion abnormality could be identified, this possibility cannot be completely excluded based on the study. Left ventricular ejection fraction is estimated at 60 %. Normal diastolic function. 3. Normal right ventricular size and systolic function. 4. Normal pulmonary artery pressure. 5. No prior similar studies to compare. Cyn Pringle MD (Electronically Signed) Final Date: 12 September 2021 09:05 S
--- NOTE | 2021-09-12 01:11 | PM.HP ---
Providers/Chief Complaint Admitting Physician: Marni Mosquera MD Chief Complaint: bloody stool and gums History of Present Illness Carmelo Bahena is a 51 year old male who presents to the emergency room with chief complaint of not feeling well. He has been having some increasing shortness of breath with minimal exertion to the point that sometimes he struggles to get across the room. About 2 weeks ago he started noting that his eyes were getting yellow. He does drink alcohol regularly. He has no known history of liver disease nor known medical problems related to alcohol use. He has had significant change in his appetite lately with nausea. No vomiting with hematemesis. He has had some increased abdominal girth and gradual decline in his urine output. Urine has been darker in color when he has made urine. No report of any fevers. Patient indicates that he felt like that I was dying . He presented to the emergency room to see if there might be anything that could be done. In the emergency room he was found to have liver failure with bilirubin of 33 and alkaline phosphatase of 570. Transaminases were not as elevated. In addition he was noted to have BUN and creatinine of 100/7.0. Potassium was 4.4. Emergency room physician made arrangements for patient to be transferred to [facility] and subsequently consulted nephrology and hospitalist service for management in the ER while awaiting a bed. Evidently the patient and his were not aware of the plans for transfer to an outside facility prior to that arrangement. Patient was #[phone] on the wait list at [facility]. Upon learning of planned transfer they indicated that they did not wish to be transferred to [place]. ER provider who originally cared for him was available but did not speak to them about their concerns. As nighttime hospitalist, I reviewed the case and then spoke with Mr. Bahena and his at length about current clinical condition and potential treatment options. I was forthright about the poor prognosis in the setting of hepatorenal syndrome but also clear that we cannot completely predict the exact clinical course a given patient may follow. Ultimately they requested admission here rather than transfer to outside facility, with full understanding of the fact that we do not have a hydrography teacher nor access to more advanced procedures that might prolong his life a bit longer. Both Mr. Bahena and his are realistic about the situation before them and desire to see if initiation of treatment outlined previously by Dr. Polk might have any impact on renal function in particular. If there is no improvement patient indicated he would rather go home and spend his days at home with his rather than in the hospital. They would be agreeable to consideration for palliative care as well. Under the circumstances and after a long conversation, I accepted Mr. Bahena to the hospitalist service here at [facility]. Review of Systems Const: Reports: change in appetite, change in weight, fatigue, malaise and change in sleep pattern; Denies: fever(s) Eyes: Reports: yellow eyes (about 2 weeks) ENMT: Denies: throat pain or nasal congestion Card: Reports: dyspnea on exertion; Denies: chest pain Resp: Reports: dyspnea; Denies: productive cough, non-productive cough or wheezing GI: Reports: nausea and hematochezia; Denies: vomiting or hematemesis : Reports: oliguria; Denies: dysuria Musc: Reports: muscle weakness; Denies: back pain Skin/Breast: Denies: rash Neuro: Denies: dizziness Psych: Denies: anxiety Endo: Denies: polyuria Francis/Lymph: Reports: easy bleeding Medications/Allergies Home Medications Medication Instructions Recorded Confirmed Last Taken Type No Known Home Medications 09/11/21 09/11/21 Unknown History Allergies Allergy/AdvReac Type Severity Reaction Status Date / Time No Known Allergies Allergy Verified 09/11/21 11:01 PFSH Acute PFSH: Medical History (Updated 09/12/21 @ 09:59 by Marni Mosquera MD) No significant past medical history Surgical History (Updated 09/12/21 @ 09:47 by Marni Mosquera MD) No significant past surgical history Family History (Updated 09/12/21 @ 09:54 by Marni Mosquera MD) Denies family history of Liver disease Chronic kidney disease (CKD) Social History (Updated 09/12/21 @ 09:55 by Marni Mosquera MD) Alcohol intake: current Household members: spouse Marital status: Marital status details: spouse works as social service/case management for [employer] D[facility] service: Yes status details: 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[place], 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 Other PFSH information: Supplemental PFSH Information: No history of diabetes, kidney disease, liver disease, hepatitis, cardiac disease Vitals/I&O/Wt Last Vital Signs Temp 97.3 F L 09/11/21 11:01 Pulse 66 09/11/21 20:27 Resp 24 H 09/11/21 20:27 BP 102/47 09/11/21 22:32 Pulse Ox 92 09/11/21 20:27 09/11/21 09/11/21 09/12/21 14:59 22:59 06:59 Intake Total 250 / 250 Balance 250 / 250 Weight last 48 hrs Weight 122.47 kg Physical Exam Narrative: Constitutional: Awake and alert, looks fatigued, able to provide history, cooperative HEENT: Normocephalic, icteric sclera, dry mucous membranes, extraocular movements intact Neck: Supple Respiratory: Mildly tachypneic, pauses intermittently with speaking, no retractions, pursed lips Cardiovascular: Regular rhythm, 2+ radial pulse Abdomen: Soft, rotund, nontender Extremities: No pitting edema Skin: Dry, yellowish bronze appearance Neuro: Speech clear, face symmetric, no resting tremor noted, handgrip equal Psych: Normal affect, remarkable insight into his own emotional responses and belief systems as relates to current healthcare condition Data : 09/12/21 03:50 09/12/21 03:50 Other Labs: Radiology Impressions Abdomen Ultrasound 09/11/21 13:01 IMPRESSION: 1. Hepatomegaly and hepatic steatosis. 2. Contracted gallbladder with thick kwong and no stones 3. Negative right kidney 4. Cinthya hepatic ascites Abdomen/Pelvis CT 09/11/21 17:31 IMPRESSION: 1. Moderate ascites. 2. Hepatosplenomegaly. 3. Dilated portal vein and small varices consistent with portal hypertension. Chest X-Ray 09/11/21 17:51 IMPRESSION: No acute findings. Laboratory Results WBC 11.3 10^3/uL (4.0-10.0) H 09/11/21 11:20 RBC 3.74 10^6/uL (4.1-5.3) L 09/11/21 11:20 Hgb 12.3 g/dL (11.7-16.6) 09/11/21 11:20 Hct 34.6 % (42.0-52.0) L 09/11/21 11:20 MCV 92.5 fl (80-94) 09/11/21 11:20 MCH 32.9 pg (28.0-34.0) 09/11/21 11:20 MCHC 35.5 g/dL (30.0-36.0) 09/11/21 11:20 RDW 15.0 % (12.1-15.1) 09/11/21 11:20 Plt Count 147 10^3/cmm (130-400) 09/11/21 11:20 MPV 10.6 fL (7.4-10.4) H 09/11/21 11:20 Neut % (Auto) 86.9 % 09/11/21 11:20 Lymph % (Auto) 4.1 % 09/11/21 11:20 Towner % (Auto) 6.7 % 09/11/21 11:20 Eos % (Auto) 0.6 % 09/11/21 11:20 Baso % (Auto) 0.3 % 09/11/21 11:20 Neut # (Auto) 9.79 10^3/uL (1.8-7.7) H 09/11/21 11:20 Lymph # (Auto) 0.5 10^3/uL (0.8-4.8) L 09/11/21 11:20 Towner # (Auto) 0.8 10^3/uL (0.2-0.9) 09/11/21 11:20 Eos # (Auto) 0.1 10^3/uL (0.0-0.8) 09/11/21 11:20 Baso # (Auto) 0.0 10^3/uL (0.0-0.1) 09/11/21 11:20 Nucleated RBC % (auto) 0 % 09/11/21 11:20 Nucleated RBCs # 0.0 /100WBC 09/11/21 11:20 ESR 37 mm/hr (0-10) H 09/11/21 11:20 PT 19.90 SECONDS (12.1-14.9) H 09/11/21 11:20 INR 1.66 (0.8-1.2) H 09/11/21 11:20 APTT 47.4 SECONDS (23.9-36.7) H 09/11/21 11:20 APTT Cancelled 09/11/21 11:20 Sodium 123 mmol/L (136-145) L 09/11/21 11:20 Potassium 4.4 mmol/L (3.5-5.1) 09/11/21 11:20 Chloride 86 mmol/L (98-107) L 09/11/21 11:20 Carbon Dioxide 15 mmol/L (22-29) L 09/11/21 11:20 Anion Gap 26.4 (5-19) H 09/11/21 11:20 BUN 100 mg/dL (6-20) H* 09/11/21 11:20 Creatinine 7.0 mg/dL (0.7-1.2) H* 09/11/21 11:20 GFR Calculation 8.3 mL/min (90-130) L 09/11/21 11:20 Glucose 204 mg/dL (65-115) H 09/11/21 11:20 Estimat Average Glucose 180 09/11/21 11:20 Hemoglobin A1c 7.9 % (4.0-6.0) H 09/11/21 11:20 Calculated Osmolality 293 mOsm/kg (285-295) 09/11/21 11:20 Lactic Acid 1.7 mmol/L (0.5-2.2) 09/11/21 18:39 Uric Acid 14.2 mg/dL (3.4-7.0) H 09/11/21 11:20 Calcium 7.8 mg/dL (8.5-10.5) L 09/11/21 11:20 Ferritin 814 ng/mL (30-400) H 09/11/21 11:20 Total Bilirubin 33.9 mg/dL (0.15-1.2) H* 09/11/21 11:20 AST 118 U/L (0-40) H 09/11/21 11:20 ALT 53 U/L (0-41) H 09/11/21 11:20 Alkaline Phosphatase 570 IU/L (40-130) H 09/11/21 11:20 Ammonia 53 umol/L (16-60) 09/11/21 11:20 Creatine Kinase 23 U/L (39-308) L 09/11/21 11:20 Troponin T Baseline 23 ng/L (0-15) H 09/11/21 11:20 Troponin T 120 Minute 20.88 ng/L (0-15) H 09/11/21 13:05 Delta Troponin T -2.12 ABS# (0-10) L 09/11/21 13:05 Troponin T Hi Sens 6Hr 21.76 ng/L (0-15) H 09/11/21 17:30 Troponin T Hi Sens 6Hr Delta -1.24 ng/L (0-12) L 09/11/21 17:30 C-Reactive Protein 77.1 mg/L (0.0-4.9) H 09/11/21 17:30 Total Protein 6.2 g/dL (6.6-8.7) L 09/11/21 11:20 Albumin 2.5 g/dL (3.5-5.2) L 09/11/21 11:20 Globulin 3.7 g/dL (1.3-4.6) 09/11/21 11:20 Triglycerides 338 mg/dL (0-150) H 09/11/21 11:20 Cholesterol 162 mg/dL (0-200) 09/11/21 11:20 LDL Cholesterol, Calc 89 mg/dL (50-129) 09/11/21 11:20 HDL Cholesterol 5 mg/dL (60-100) L 09/11/21 11:20 LDL/HDL Ratio 17.80 RATIO (0.00-3.22) H 09/11/21 11:20 Cholesterol/HDL Ratio 32.40 mg/dL (1.0-5.00) H 09/11/21 11:20 Lipase 68 U/L (13-60) H 09/11/21 11:20 Procalcitonin 4.00 ng/mL (0-0.5) H 09/11/21 17:30 TSH 2.58 uIU/mL (0.27-4.20) 09/11/21 11:20 Urine Color Angie (Yellow) 09/11/21 12:10 Urine Appearance Sl hazy (CLEAR) 09/11/21 12:10 Urine pH 5 (5-7) 09/11/21 12:10 Ur Specific [place] 1.020 (1.005-1.030) 09/11/21 12:10 Urine Protein Neg (Negative) 09/11/21 12:10 Urine Glucose (UA) Trace (Normal) H 09/11/21 12:10 Urine Ketones Negative (Negative) 09/11/21 12:10 Urine Blood 2+ (Negative) H 09/11/21 12:10 Urine Nitrate Negative (Negative) 09/11/21 12:10 Urine Bilirubin 3+ (Negative) H 09/11/21 12:10 Urine Urobilinogen 4 mg/dL (Negative) H 09/11/21 12:10 Ur Leukocyte Esterase Negative (Negative) 09/11/21 12:10 Urine RBC 0-4 /hpf (0-2) H 09/11/21 12:10 Urine WBC 0-4 /hpf (0-5) H 09/11/21 12:10 Ur Squamous Epith Cells 0-4 /hpf (0-5) H 09/11/21 12:10 Amorphous Sediment 1+ /hpf 09/11/21 12:10 Urine Bacteria 1+ /hpf (NONE) H 09/11/21 12:10 Coarse Granular Casts 10-15 /lpf H 09/11/21 12:10 U Random Total Protein 54 mg/dL 09/11/21 12:10 Ur Random Sodium 20 mmol/L 09/11/21 12:10 Urine Creatinine 148 mg/dL (39-259) 09/11/21 12:10 Protein/Creatinin Ratio 0.36 mg/mg CR 09/11/21 12:10 Salicylates < 0.3 mg/dL (3-10) L 09/11/21 17:30 Urine Opiates Screen Negative ng/mL (Negative) 09/11/21 12:10 Acetaminophen < 5.0 ug/mL (10-30) L 09/11/21 17:30 Ur Barbiturates Screen Negative ng/mL (Negative) 09/11/21 12:10 Ur Phencyclidine Scrn Negative ng/mL (Negative) 09/11/21 12:10 Ur Amphetamines Screen Negative ng/mL (Negative) 09/11/21 12:10 U Benzodiazepines Scrn Negative ng/mL (Negative) 09/11/21 12:10 Urine Cocaine Screen Negative ng/mL (Negative) 09/11/21 12:10 U Marijuana (THC) Screen Negative ng/mL (Negative) 09/11/21 12:10 Ethyl Alcohol < 10 mg/dL (0-10) 09/11/21 11:20 Ethyl Alcohol Cancelled 09/11/21 11:20 Hepatitis A IgM Ab Non-reactive (Nonreactive) 09/11/21 11:20 Hep Bs Antigen Non-reactive (Nonreactive) 09/11/21 11:20 Hep B Core IgM Ab Non-reactive (Nonreactive) 09/11/21 11:20 Hepatitis C Antibody Non-reactive (Nonreactive) 09/11/21 11:20 HIV 1&2 Ab & HIV 1 Ag Non-reactive (Non-Reactiv) 09/11/21 11:20 HIV 1&2 Antibody Non-reactive (Non-Reactiv) 09/11/21 11:20 Micro: Microbiology 09/11/21 21:35 Occult Blood (FIT) - Final Stool Routine Collection A&P Assessment and plan (1) Acute liver failure: Drinks Alcohol regularly, though denies large volume, likely primary reason for liver disease both acutely and chronically. Has associated hepatomegaly, splenomegaly, portal vein dilatation and small varices visible, ascites, hypoproteinemia, thrombocytopenia, in addition to significant hyperbilirubinemia and alkaline phosphatemia. Mild elevation in transaminases. 09/11/21 11:20 Bilirubin 33.9 AST 118 ALT 53 AlkPhos 570 Ferritin 814 TSH 2.58 Plt 147 INR 1.66 NH3 53 Alb 2.5 UDS Negative Etoh < 10 09/11/21 VANNESA IFA Animal Tis Res Pending ENIO-1 Antibody Pending SS-A Antibody Pending SS-B Antibody Pending Sm ([place]) Antibody Pending INCOME TAX INVESTIGATOR Antibody Pending Scl-70 Antibody Pending Anti-ds DNA IgG ([place]) Pending Centromere B Antibody Pending Thyroid Peroxidase Ab Pending Complement C3c Pending Complement C4c Pending CH50 Classical Pathway Pending Hepatitis A IgM Ab Non-reactive Hep Bs Antigen Non-reactive Hep B Core IgM Ab Non-reactive Hepatitis C Antibody Non-reactive HIV 1&2 Ab & HIV 1 Ag Non-reactive HIV 1&2 Antibody Non-reactive Mitochondrial DNA Scrn Non-reactive Status: Acute Qualifiers: Hepatic coma status: without hepatic coma Qualified Code(s): K72.00 - Acute and subacute hepatic failure without coma (2) Hepatorenal syndrome: 09/11/21 11:20 BUN 100 H* Creatinine 7.0 H* Status: Acute (3) Regular alcohol consumption: Does not feel like he will have issue quitting drinking Status: Acute Plan Inpatient admission Continue combination of octreotide, midodrine and albumin Serial laboratory studies Follow-up pending labs as indicated above regarding work up for cause of liver failure with hepatorenal syndrome WA protocol as needed Continue previously initiated empiric antibiotics For now we will continue IV fluids as ordered though need to watch blood sugars Antiemetics if needed Supportive care otherwise Findings, concerns and plans as described by consulting physicians earlier today were reviewed extensively with patient and his and both were given an opportunity to ask questions. They are very clear and their desire not to be transferred to [place] or other [place] [facility]. Patient indicates that he knew something was seriously wrong prior to coming into the hospital and that he and his had had long conversations about that. They would rather be hospitalized here for another day or so just to see if he has any clinical improvement with management initiated. At that time if not doing better will want to go home with palliative/hospice care. Case management to assist with disposition planning Allow natural as per discussion with patient and his Attestations Medical Necessity Statement*: Anticipated stay greater than two midnights in a patient presenting with liver failure and hepatorenal syndrome as a new diagnosis. Poor overall clinical prognosis. Has not been on any form of treatment. Plans are to see if he has any clinical response to above management Coding Level of Care Code Acute Heavy Forger Helper for Aneta Farias Diagnoses Hepatorenal syndrome K76.7 Acute liver failure K72.00 Hepatic coma status: without hepatic coma Regular alcohol consumption Z78.9
[2021-09-12] MEDS: morphine 4 mg/mL SDV 1 mL 1 MG IVP ×2 (03:05→13:17)
[2021-09-12 04:04] LABS: Basophils % 0.4 %; Eosinophils # 0.1 10^3/uL (0.0-0.8); Eosinophils % 1.2 %; Hematocrit 29.2 % (42.0-52.0); Hemoglobin 10.6 g/dL (11.7-16.6); Lymphocytes # 0.6 10^3/uL (0.8-4.8); Lymphocytes % 5.5 %; Mean Corpuscular HGB Conc 36.3 g/dL (30.0-36.0); Mean Corpuscular Hemoglobin 33.4 pg (28.0-34.0); Mean Corpuscular Volume 92.1 fl (80-94); Mean Platelet Volume 10.8 fL (7.4-10.4); Monocytes # 0.7 10^3/uL (0.2-0.9); Monocytes % 6.8 %; Neutrophils # 8.64 10^3/uL (1.8-7.7); Nucleated Red Blood Cells % 0 %; Platelet Count 121 10^3/cmm (130-400); Red Blood Count 3.17 10^6/uL (4.1-5.3); Red Cell Distribution Width 15.2 % (12.1-15.1); White Blood Count 10.2 10^3/uL (4.0-10.0)
[2021-09-12 04:26] LABS: Alanine Aminotransferase 42 U/L (0-41); Albumin Level 2.2 g/dL (3.5-5.2); Alkaline Phosphatase 447 IU/L (40-130); Anion Gap 25.6 (5-19); Aspartate Amino Transferase 104 U/L (0-40); Calcium 7.3 mg/dL (8.5-10.5); Carbon Dioxide 15 mmol/L (22-29); Chloride 90 mmol/L (98-107); Globulin 3.3 g/dL (1.3-4.6); Glomerular Filtration Rate 7.6 mL/min (90-130); Glucose 220 mg/dL (65-115); Magnesium 3.1 mg/dL (1.7-2.3); Phosphorus 7.4 mg/dL (2.5-4.5); Potassium 4.6 mmol/L (3.5-5.1); Sodium 126 mmol/L (136-145); Total Protein 5.5 g/dL (6.6-8.7)
[2021-09-12 04:29] LABS: Ammonia 69 umol/L (16-60)
[2021-09-12 04:30] LABS: Creatine Phosphokinase 30 U/L (39-308); Uric Acid 14.6 mg/dL (3.4-7.0)
[2021-09-12 04:36] LABS: Osmolality Calculated 308 mOsm/kg (285-295)
[2021-09-12 04:37] LABS: Blood Urea Nitrogen 123 mg/dL (6-20); Total Bilirubin 29.4 mg/dL (0.15-1.2)
[2021-09-12] MEDS: piperacillin-tazobactam 3.375 GM in sodium chloride 0.9% (plus) 50 ML IV ×2 (05:40→18:24)
[2021-09-12] MEDS: pantoprazole 40 mg SDV IVP ×2 (05:41→17:24)
[2021-09-12] MEDS: midodrine 5 mg TABLET 10 MG PO ×2 (08:36→17:27)
[2021-09-12] MEDS: thiamine 100 mg Tablet PO (08:36)
[2021-09-12] MEDS: multivitamin therapeutic Tablet 1 TAB PO (08:37)
[2021-09-12] MEDS: folic acid 1 mg Tablet PO (08:37)
--- NOTE | 2021-09-12 09:05 | P.PN_ITS ---
Subjective Subjective: Mr. Bahena feels okay. Asking for some sleep aid. No overt DTs at this time. Mild lower extremity edema, has ascites. Feels weak. Still not making any urine. No other new, acute issues today. Vitals/I&O/Wt Last Vital Signs Temp 97.6 F 09/12/21 07:32 Pulse 86 09/12/21 07:32 Resp 16 09/12/21 07:32 BP 113/63 09/12/21 07:32 Pulse Ox 95 09/12/21 07:32 09/11/21 09/12/21 09/12/21 22:59 06:59 14:59 Intake Total 250 / 250 120 / 370 Balance 250 / 250 120 / 370 Weight last 48 hrs Weight 122.47 kg Physical Exam Narrative: Constitutional: Awake, comfortable HEENT: Wet mucosa, no jvp, icteric Lungs: Bilaterally clear without discernible wheeze or rales in all lung zones CVS: S1 S2, no murmurs Abdo: Soft, BS ok, ascites Ext 4: Minimal edema, peripheral perfusion with no cyanosis Neurological: Grossly non-focal Data : 09/12/21 03:50 09/12/21 03:50 Micro: Microbiology 09/11/21 21:35 Occult Blood (FIT) - Final Stool Routine Collection A&P Assessment and plan (1) Acute liver failure: 1. Renal failure Fully consistent with hepatorenal syndrome in the setting of advanced liver damage. Cont combination albumin, midodrine, octreotide. I had a vince discussion with him. He is not a candidate for dialysis. This will not be offered. Strict I's and O's Avoid usual nephrotoxic agents Dose medication for GFR less than 15 2. Advanced liver failure. As he drank on the morning of his admission, he would not be a candidate for liver transplant. Would monitor for DTs, defer management to medical team for this. 3. Chemistry Hyponatremia, low bicarb. These are noncritical, simply need to be monitored for the time being. 4. Disposition On discussion with Mr. Bahena and his , they have also spoken to other team members now. They now realize the gravity of the situation. This is not survivable without a liver transplant and he is clearly not a candidate for this. If albumin does not work by tomorrow, they will want to go home on hospice. His was at bedside, I answered all the questions to their satisfaction. Thank you for consultation, it is a pleasure to follow these cases with you Exam and interview performed with aid of bedside RN using telemedicine Time spent 20 min inc > 50% of time in face to face counseling Lavelle Polk MD [facility] [phone] Status: Acute Attestations Medical Necessity Statement*: eval for renal failure Coding Level of Care Code Acute Linux Unix System Administrator for Chg Fwd Diagnoses Acute liver failure K72.00
[2021-09-12] MEDS: albumin 12.5 GM/250 ML VIAL IV ×4 (09:51→21:07)
[2021-09-12] MEDS: octreotide 100 mcg/mL SDV 200 MCG SUBCUT ×2 (09:51→17:39)
--- NOTE | 2021-09-12 11:19 | PC.CHAP ---
Pastoral Care Encounter/Spiritual Assessment Type of Contact [] Declined desktop operator visit [] Patient/Family/Request visit [] Outpatient visit [] Follow-up visit [] Physician referral [] Code/Alert [x] Routine visit [] Staff referral [] Actively dying [] Patient sleeping [] Family support [] [] Out of room [] Palliative care [] [] Receiving care in room [] Pre-surgical visit [] Trauma [] Long length of stay [] ICU visit [] Other: Relational/Emotional Strength x[] Patient feels connected with others/family/visitors/staff [] Distress [] Loneliness/isolation [] Abandonment Spirituality of Patient [x] Person of Veronica [] Attends Judaism of their Veronica [x] Believes in Prayer [] Reads Bible or Adventist materials [] There are Spiritual issues to be addressed Retail Property Manager Interventions [x] Prayer [x] Active listening [x] Non-anxious presence [] Spiritual/emotional support [] Crisis/trauma care [] Spiritual counseling [] Bereavement support [] Provided bereavement packet [] Provided Bible/devotional materials [] Provided toy/stuffed animal, coloring book to patient or family member [] Provided Communion [] Anointing/[place] [] Salvation [x] Completed spiritual assessment [] Other: Impact on Illness or Injury [] Angry [] Fearful [] Anxious [] Often cries [] Exhaustion [] Unable to work [] Unable to attend cheondoism [] Unable to walk/stand [] Unable to read [] Unable to drive [] Unable to eat/drink [] Unable to sleep [] Unable to be with family [] Patient intubated [] Other: Summary Time spent with patient 10 min
[2021-09-12 11:28] LABS: Tumor Marker Alpha Fetoprotein 1.9 ng/mL (0-8.3)
[2021-09-12 11:30] LABS: Glucose Point of Care 237 mg/dL (70-110)
[2021-09-12] MEDS: insulin lispro 100 unit/1 mL SUBCUT ×2 (11:55→17:39)
[2021-09-12] MEDS: LORazepam 2 mg/mL INJ 1 mL IVP (13:18)
--- NOTE | 2021-09-12 14:30 | PM.PN ---
Subjective Subjective: Patient was seen this morning, his is at bedside -Patient tells me that he wants to go home on hospice, he does not want to have any treatment for his liver or kidney failure -He declines any transfer to higher level center for consideration of liver biopsy, or liver transplant, or kidney transplant or further evaluation -He tells me that he wants to spend a few days here in the hospital to see what our interventions can offer to his kidney function or liver function -I advised patient that our interventions might provide some benefit, although on clear at this time, however it will not fix his liver and kidney issues -I was very clear with patient that he is in acute liver failure, acute renal failure, hepatorenal syndrome -Given his age, it would be prudent for further evaluation, evaluation at tertiary care center, as I do not have any hepatology, I do not have any transplant specialist -He voices any, all questions answered, however declines, he wants to go home on hospice -I was clear with patient that if he goes home on hospice, that would mean that he would not intervene on his liver nor his kidney -He tells me that he wants to just remain comfortable, and go home -He understands that he has a significant risk of morbidity mortality in the hospital, he wants to remain a DO NOT RESUSCITATE, DO NOT INTUBATE, does not want to have any aggressive interventions -He tells me all he wants is a good night sleep tonight Vitals/I&O/Wt Last Vital Signs Temp 97.6 F 09/12/21 08:00 Pulse 82 09/12/21 11:43 Resp 18 09/12/21 13:17 BP 101/64 09/12/21 11:43 Pulse Ox 90 09/12/21 11:43 09/11/21 09/12/21 09/12/21 22:59 06:59 14:59 Intake Total 250 / 250 370 / 620 540 / 540 Balance 250 / 250 370 / 620 540 / 540 Weight last 48 hrs Weight 122.47 kg Physical Exam Const: COMMON NORMALS: no acute distress and patient oriented x3 Resp: COMMON NORMALS: normal respiratory effort, No retractions, No use of accessory muscles and clear to auscultation bilaterally AUSCULTATION: clear to auscultation bilaterally Cardio: COMMON NORMALS: regular rate, regular rhythm, S1 normal heart sound present and S2 normal heart sound present RATE: regular rate RHYTHM: regular rhythm HEART SOUNDS: S1 normal heart sound present and S2 normal heart sound present GI: COMMON NORMALS: Normal to inspection, nondistended, normoactive bowel sounds present, Soft to palpation, non-tender and No hepatosplenomegaly present PALPATION: Yes Soft to palpation and Yes No hepatosplenomegaly present Extremity: COMMON NORMALS: no pedal edema Neuro: COMMON NORMALS: patient oriented x3 Psych: COMMON NORMALS: mental status grossly normal Data : 09/12/21 03:50 09/12/21 03:50 Micro: Microbiology 09/11/21 21:35 Occult Blood (FIT) - Final Stool Routine Collection A&P Assessment and plan (1) Acute liver failure: Status: Acute Qualifiers: Hepatic coma status: without hepatic coma Qualified Code(s): K72.00 - Acute and subacute hepatic failure without coma Plan Acute failure -Likely secondary to alcoholism -With elevated bilirubin, jaundice -Elevated INR -Hypoalbuminemia -Hyponatremia -Hepatorenal syndrome -Dehydration -History of alcoholism -Receiving albumin, fluids, octreotide, midodrine -Abdomen is distended, does have ascites, start Zosyn for possible SBP although unlikely -History of alcoholism, avoid blood thinners, avoid nephrotoxic agents -Nephrology consulted for hepatorenal syndrome, creatinine 7, not a candidate for dialysis -Given his history of alcoholism, he might not be a suitable candidate for liver transplant, declines even evaluation for possible transplant list -Declines transfer to a higher level center for further evaluation, for hepatology, evaluation by transplant team, -Wants to go home on hospice -I was clear and honest with patient, I feel that our interventions will likely not provide any significant benefit to his liver failure, kidney failure but I am willing to try our interventions -Alcoholism, monitor for withdrawals, CIWA protocol -Prognosis is poor, status is critical -DNR/DNI -SCDs for DVT prophylaxis Attestations Medical Necessity Statement*: Patient requires hospitalization for acute liver failure, acute renal failure, hepatorenal syndrome, history of alcoholism Coding Level of Care Code Acute Multiple Spindle Router Operator for Aneta Farias Diagnoses Acute liver failure K72.00 Hepatic coma status: without hepatic coma
[2021-09-12 17:18] LABS: Glucose Point of Care 171 mg/dL (70-110)
[2021-09-13] VITALS: BP 99/59; PULSE 83; RESP 18; TEMP 36.3; O2SAT 96
[2021-09-13] MEDS: dextrose 5%-sod chloride 0.9% 1,000 ML 50 ML IV (03:32)
[2021-09-13 05:10] LABS: Basophils % 0.5 %; Eosinophils # 0.1 10^3/uL (0.0-0.8); Eosinophils % 1.6 %; Lymphocytes # 0.7 10^3/uL (0.8-4.8); Mean Corpuscular HGB Conc 34.5 g/dL (30.0-36.0); Mean Corpuscular Hemoglobin 32.6 pg (28.0-34.0); Mean Corpuscular Volume 94.5 fl (80-94); Mean Platelet Volume 10.5 fL (7.4-10.4); Monocytes # 0.5 10^3/uL (0.2-0.9); Monocytes % 6.7 %; Neutrophils % 81.6 %; Nucleated Red Blood Cells % 0 %; Platelet Count 105 10^3/cmm (130-400); Red Blood Count 3.07 10^6/uL (4.1-5.3); Red Cell Distribution Width 15.4 % (12.1-15.1); White Blood Count 8.1 10^3/uL (4.0-10.0)
[2021-09-13 05:15] LABS: Ammonia 67 umol/L (16-60)
[2021-09-13 05:29] LABS: Alanine Aminotransferase 40 U/L (0-41); Albumin Level 2.4 g/dL (3.5-5.2); Alkaline Phosphatase 355 IU/L (40-130); Anion Gap 25.1 (5-19); Aspartate Amino Transferase 170 U/L (0-40); Calcium 7.3 mg/dL (8.5-10.5); Carbon Dioxide 14 mmol/L (22-29); Chloride 89 mmol/L (98-107); Globulin 2.7 g/dL (1.3-4.6); Glomerular Filtration Rate 6.2 mL/min (90-130); Glucose 212 mg/dL (65-115); Magnesium 3.2 mg/dL (1.7-2.3); Potassium 4.1 mmol/L (3.5-5.1); Sodium 124 mmol/L (136-145); Total Protein 5.1 g/dL (6.6-8.7)
[2021-09-13 05:30] LABS: Creatine Phosphokinase 26 U/L (39-308); Uric Acid 16.5 mg/dL (3.4-7.0)
[2021-09-13] MEDS: pantoprazole 40 mg SDV IVP (05:32)
[2021-09-13] MEDS: piperacillin-tazobactam 3.375 GM in sodium chloride 0.9% (plus) 50 ML IV (05:32)
[2021-09-13 06:07] LABS: Osmolality Calculated 304 mOsm/kg (285-295)
[2021-09-13 06:08] LABS: Blood Urea Nitrogen 123 mg/dL (6-20)
[2021-09-13 06:09] LABS: Phosphorus 8.7 mg/dL (2.5-4.5); Total Bilirubin 30.9 mg/dL (0.15-1.2)
[2021-09-13 07:14] VITALS: BP 93/48; PULSE 88; RESP 14; TEMP 36.4; O2SAT 98
[2021-09-13 08:18] LABS: Glucose Point of Care 238 mg/dL (70-110)
--- NOTE | 2021-09-13 08:21 | P.PN_ITS ---
Subjective Subjective: Mr. Bahena continues to feel weak, tired. Still not making any urine. No confusion. Overall generally comfortable. Plans for discharge on hospice now appreciated. Vitals/I&O/Wt Last Vital Signs Temp 97.5 F L 09/13/21 07:14 Pulse 88 09/13/21 07:14 Resp 14 09/13/21 07:14 BP 93/48 09/13/21 07:14 Pulse Ox 98 09/13/21 07:14 09/12/21 09/13/21 09/13/21 22:59 06:59 14:59 Intake Total 370 / 2160 300 / 2460 Balance 370 / 2160 300 / 2460 Weight last 48 hrs Weight 122.47 kg Physical Exam Narrative: Constitutional: Awake, comfortable HEENT: Wet mucosa, no jvp, icteric Lungs: Bilaterally clear without discernible wheeze or rales in all lung zones CVS: S1 S2, no murmurs Abdo: Soft, BS ok, ascites Ext 4: Minimal edema, peripheral perfusion with no cyanosis Neurological: Grossly non-focal Data : 09/13/21 04:42 09/13/21 04:42 A&P Assessment and plan (1) Acute liver failure: 1. Renal failure Fully consistent with hepatorenal syndrome in the setting of advanced liver damage. Not responded to albumin, midodrine, octreotide. Dialysis not an option given futility 2. Advanced liver failure. As he drank on the morning of his admission, he would not be a candidate for liver transplant. Would monitor for DTs, defer management to medical team for this. Discussed with his at bedside. She is appreciative of our candour, our honesty in regard to his prognosis. At this time transition home on hospice is appropriate. I will sign off his care at this time, please not hesitate to call me should his situation change. His was at bedside, I answered all the questions to their satisfaction. Thank you for consultation, it is a pleasure to follow these cases with you Exam and interview performed with aid of bedside RN using telemedicine Time spent 20 min inc > 50% of time in face to face counseling Lavelle Polk MD [facility] [phone] Status: Acute Qualifiers: Hepatic coma status: without hepatic coma Qualified Code(s): K72.00 - Acute and subacute hepatic failure without coma Attestations Medical Necessity Statement*: eval for renal failure Coding Level of Care Code Acute Pesticide Chemist for Chg Fwd Diagnoses Acute liver failure K72.00 Hepatic coma status: without hepatic coma
[2021-09-13] MEDS: midodrine 5 mg TABLET 10 MG PO (10:20)
[2021-09-13] MEDS: thiamine 100 mg Tablet PO (10:21)
[2021-09-13] MEDS: multivitamin therapeutic Tablet 1 TAB PO (10:21)
[2021-09-13] MEDS: folic acid 1 mg Tablet PO (10:21)
[2021-09-13 10:58] LABS: CENTROMERE B ANTIBODY <1.0 NEG AI (<1.0 NEG); JO-1 ANTIBODY <1.0 NEG AI (<1.0 NEG); RNP ANTIBODY <1.0 NEG AI (<1.0 NEG); SCL-70 ANTIBODY <1.0 NEG AI (<1.0 NEG); SJOGREN'S ANTIBODY (SS-A) <1.0 NEG AI (<1.0 NEG); SM ANTIBODY <1.0 NEG AI (<1.0 NEG); SS-B <1.0 NEG AI (<1.0 NEG)
[2021-09-13 12:18] LABS: COMPLEMENT COMPONENT C3C 142 mg/dL (82-185); COMPLEMENT COMPONENT C4C 16 mg/dL (15-53)
[2021-09-13 13:05] VITALS: BP 93/48; PULSE 88; RESP 14; TEMP 36.4; O2SAT 98
[2021-09-13 13:53] LABS: THYROID PEROXIDASE ANTIBODIES 1 IU/mL (<9)
[2021-09-13 16:07] LABS: ANA SCREEN, IFA NEGATIVE (NEGATIVE)
--- NOTE | 2021-09-13 21:47 | PM.DCS ---
Discharge Providers Date of Admission: 09/12/21 01:17 Date of Discharge: September 13, 2021 Attending Provider at Admission: Marni Mosquera MD Attending Provider at Discharge: Gerard Hermosillo Diagnoses at Discharge Discharge Diagnosis (1) Acute liver failure: Status: Acute Qualifiers: Hepatic coma status: without hepatic coma Qualified Code(s): K72.00 - Acute and subacute hepatic failure without coma Reason for Visit Reason for Visit: bloody stool and gums Brief History: Carmelo Bahena is a 51 year old male who presents to the emergency room with chief complaint of not feeling well.? He has been having some increasing shortness of breath with minimal exertion to the point that sometimes he struggles to get across the room.? About 2 weeks ago he started noting that his eyes were getting yellow.? He does drink alcohol regularly.? He has no known history of liver disease nor known medical problems related to alcohol use.? He has had significant change in his appetite lately with nausea.? No vomiting with hematemesis.? He has had some increased abdominal girth and gradual decline in his urine output.? Urine has been darker in color when he has made urine.? No report of any fevers.? Patient indicates that he felt like that I was dying .? He presented to the emergency room to see if there might be anything that could be done.? In the emergency room he was found to have liver failure with bilirubin of 33 and alkaline phosphatase of 570.? Transaminases were not as elevated.? In addition he was noted to have BUN and creatinine of 100/7.0.? Potassium was 4.4.? Emergency room physician made arrangements for patient to be transferred to [facility] and subsequently consulted nephrology and hospitalist service for management in the ER while awaiting a bed.? Evidently the patient and his were not aware of the plans for transfer to an outside facility prior to that arrangement.? Patient was #27 on the wait list at [facility].? Upon learning of planned transfer they indicated that they did not wish to be transferred to [place].? ER provider who originally cared for him was available but did not speak to them about their concerns.? As nighttime hospitalist, I reviewed the case and then spoke with Mr. Bahena and his at length about current clinical condition and potential treatment options.? I was forthright about the poor prognosis in the setting of hepatorenal syndrome but also clear that we cannot completely predict the exact clinical course a given patient may follow.? Ultimately they requested admission here rather than transfer to outside facility, with full understanding of the fact that we do not have a roll or tape edge machine operator nor access to more advanced procedures that might prolong his life a bit longer.? Both Mr. Bahena and his are realistic about the situation before them and desire to see if initiation of treatment outlined previously by Dr. Polk might have any impact on renal function in particular.? If there is no improvement patient indicated he would rather go home and spend his days at home with his rather than in the hospital.? They would be agreeable to consideration for palliative care as well. Hospital Course Hospital Course During hospitalization additional assessment respiratory failure was undertaken, he also started on treatment for possible syndrome, monitored with CIWA protocol as well. Initiated empiric antibiotics. Supportive care. He had expressed very clear goals of care. Additional discussions by both admitting physician, attending physician, and myself today, he has not reconsidered transfer to tertiary facility. In fact today he states he is even more solidified and his wish to return home and pursue comfort/hospice care not staying any further events here. Hospice care has been involved. Meeting was scheduled today for this afternoon, and hospice care with continue with comfort measures, including comfort medications. Improving liver function, renal function, he did not wish to stay in the hospital any longer, requesting to be discharged so he can pursue arrangements with hospice. Physical Exam Narrative: at bedside. Const: COMMON NORMALS: alert GENERAL APPEARANCE: cooperative ORIENTATION/CONSCIOUSNESS: Yes awake OTHER: Sitting up in chair, working on his lunch meal. HENMT: COMMON NORMALS: normocephalic, EAC's normal, Normal external nose present and moist oral mucous membranes HEAD & SCALP: normocephalic NOSE: Normal external nose present EXTERNAL AUDITORY CANAL: EAC's normal Eye: SCLERA: scleral abnormal Laterality of scleral abnormality: positive bilateral scleral icterus Neck/C-Spine: COMMON NORMALS: no meningeal signs Chest: CHEST: Yes Symmetrical chest wall rise Resp: COMMON NORMALS: clear to auscultation bilaterally AUSCULTATION: clear to auscultation bilaterally Cardio: COMMON NORMALS: regular rate, regular rhythm and No murmurs present (Cardio) RATE: regular rate RHYTHM: regular rhythm GI: COMMON NORMALS: Normal to inspection, nondistended, normoactive bowel sounds present, Soft to palpation and non-tender PALPATION: Yes Soft to palpation Extremity: COMMON NORMALS: no pedal edema Neuro: COMMON NORMALS: moves all extremities SENSORIUM/ORIENTATION: Yes alert MENINGEAL SIGNS: Yes no meningeal signs Psych: COMMON NORMALS: mental status grossly normal Skin: COMMON NORMALS: no wounds GENERAL SKIN EXAM: jaundice RASHES: no rashes Discharge Data Studies Completed and Pending Completed Studies During Hospitalization Category Date Time Status CT abdomen pelvis wo con [id number] Urgent Cat Scan 09/11/21 17:31 Completed XR chest 1V portable [id number] Stat Exams 09/11/21 17:51 Completed CV. echo complete* [id number] Routine Ultrasound 09/12/21 00:02 Completed US abdomen limited [id number] Urgent Ultrasound 09/11/21 13:01 Completed Pending at discharge Category Date Time Status AMA [Mitochondrial AB Screen] Stat Lab 09/11/21 11:20 Received VANNESA Profile Rheumatology Stat Lab 09/11/21 18:39 Results Prothrombin Time INR Routine Lab 09/13/21 05:15 Ordered Radiology Impressions Abdomen Ultrasound 09/11/21 13:01 IMPRESSION: 1. Hepatomegaly and hepatic steatosis. 2. Contracted gallbladder with thick kwong and no stones 3. Negative right kidney 4. Cinthya hepatic ascites Abdomen/Pelvis CT 09/11/21 17:31 IMPRESSION: 1. Moderate ascites. 2. Hepatosplenomegaly. 3. Dilated portal vein and small varices consistent with portal hypertension. Chest X-Ray 09/11/21 17:51 IMPRESSION: No acute findings. Laboratory Results WBC 8.1 10^3/uL (4.0-10.0) 09/13/21 04:42 RBC 3.07 10^6/uL (4.1-5.3) L 09/13/21 04:42 Hgb 10.0 g/dL (11.7-16.6) L 09/13/21 04:42 Hct 29.0 % (42.0-52.0) L 09/13/21 04:42 MCV 94.5 fl (80-94) H 09/13/21 04:42 MCH 32.6 pg (28.0-34.0) 09/13/21 04:42 MCHC 34.5 g/dL (30.0-36.0) 09/13/21 04:42 RDW 15.4 % (12.1-15.1) H 09/13/21 04:42 Plt Count 105 10^3/cmm (130-400) L 09/13/21 04:42 MPV 10.5 fL (7.4-10.4) H 09/13/21 04:42 Neut % (Auto) 81.6 % 09/13/21 04:42 Lymph % (Auto) 8.0 % 09/13/21 04:42 [place] % (Auto) 6.7 % 09/13/21 04:42 Eos % (Auto) 1.6 % 09/13/21 04:42 Baso % (Auto) 0.5 % 09/13/21 04:42 Neut # (Auto) 6.60 10^3/uL (1.8-7.7) 09/13/21 04:42 Lymph # (Auto) 0.7 10^3/uL (0.8-4.8) L 09/13/21 04:42 [place] # (Auto) 0.5 10^3/uL (0.2-0.9) 09/13/21 04:42 Eos # (Auto) 0.1 10^3/uL (0.0-0.8) 09/13/21 04:42 Baso # (Auto) 0.0 10^3/uL (0.0-0.1) 09/13/21 04:42 Nucleated RBC % (auto) 0 % 09/13/21 04:42 Nucleated RBCs # 0.0 /100WBC 09/13/21 04:42 ESR 37 mm/hr (0-10) H 09/11/21 11:20 PT Cancelled 09/13/21 04:42 INR Cancelled 09/13/21 04:42 APTT 47.4 SECONDS (23.9-36.7) H 09/11/21 11:20 APTT Cancelled 09/11/21 11:20 Sodium 124 mmol/L (136-145) L 09/13/21 04:42 Potassium 4.1 mmol/L (3.5-5.1) 09/13/21 04:42 Chloride 89 mmol/L (98-107) L 09/13/21 04:42 Carbon Dioxide 14 mmol/L (22-29) L 09/13/21 04:42 Anion Gap 25.1 (5-19) H 09/13/21 04:42 BUN 123 mg/dL (6-20) H* 09/13/21 04:42 Creatinine 9.1 mg/dL (0.7-1.2) H* 09/13/21 04:42 GFR Calculation 6.2 mL/min (90-130) L 09/13/21 04:42 Glucose 212 mg/dL (65-115) H 09/13/21 04:42 POC Glucose 238 mg/dL (70-110) H 09/13/21 06:48 Estimat Average Glucose 180 09/11/21 11:20 Hemoglobin A1c 7.9 % (4.0-6.0) H 09/11/21 11:20 Calculated Osmolality 304 mOsm/kg (285-295) H 09/13/21 04:42 Lactic Acid 1.7 mmol/L (0.5-2.2) 09/11/21 18:39 Uric Acid 16.5 mg/dL (3.4-7.0) H 09/13/21 04:42 Calcium 7.3 mg/dL (8.5-10.5) L 09/13/21 04:42 Phosphorus 8.7 mg/dL (2.5-4.5) H* 09/13/21 04:42 Magnesium 3.2 mg/dL (1.7-2.3) H 09/13/21 04:42 Ferritin 814 ng/mL (30-400) H 09/11/21 11:20 Total Bilirubin 30.9 mg/dL (0.15-1.2) H* 09/13/21 04:42 AST 170 U/L (0-40) H 09/13/21 04:42 ALT 40 U/L (0-41) 09/13/21 04:42 Alkaline Phosphatase 355 IU/L (40-130) H 09/13/21 04:42 Ammonia 67 umol/L (16-60) H 09/13/21 04:42 Creatine Kinase 26 U/L (39-308) L 09/13/21 04:42 Troponin T Baseline 23 ng/L (0-15) H 09/11/21 11:20 Troponin T 120 Minute 20.88 ng/L (0-15) H 09/11/21 13:05 Delta Troponin T -2.12 ABS# (0-10) L 09/11/21 13:05 Troponin T Hi Sens 6Hr 21.76 ng/L (0-15) H 09/11/21 17:30 Troponin T Hi Sens 6Hr Delta -1.24 ng/L (0-12) L 09/11/21 17:30 C-Reactive Protein 77.1 mg/L (0.0-4.9) H 09/11/21 17:30 Total Protein 5.1 g/dL (6.6-8.7) L 09/13/21 04:42 Albumin 2.4 g/dL (3.5-5.2) L 09/13/21 04:42 Globulin 2.7 g/dL (1.3-4.6) 09/13/21 04:42 Triglycerides 338 mg/dL (0-150) H 09/11/21 11:20 Cholesterol 162 mg/dL (0-200) 09/11/21 11:20 LDL Cholesterol, Calc 89 mg/dL (50-129) 09/11/21 11:20 HDL Cholesterol 5 mg/dL (60-100) L 09/11/21 11:20 LDL/HDL Ratio 17.80 RATIO (0.00-3.22) H 09/11/21 11:20 Cholesterol/HDL Ratio 32.40 mg/dL (1.0-5.00) H 09/11/21 11:20 Lipase 68 U/L (13-60) H 09/11/21 11:20 Tumor Marker AFP 1.9 ng/mL (0-8.3) 09/12/21 03:50 Procalcitonin 4.00 ng/mL (0-0.5) H 09/11/21 17:30 TSH 2.58 uIU/mL (0.27-4.20) 09/11/21 11:20 Urine Color Angie (Yellow) 09/11/21 12:10 Urine Appearance Sl hazy (CLEAR) 09/11/21 12:10 Urine pH 5 (5-7) 09/11/21 12:10 Ur Specific [place] 1.020 (1.005-1.030) 09/11/21 12:10 Urine Protein Neg (Negative) 09/11/21 12:10 Urine Glucose (UA) Trace (Normal) H 09/11/21 12:10 Urine Ketones Negative (Negative) 09/11/21 12:10 Urine Blood 2+ (Negative) H 09/11/21 12:10 Urine Nitrate Negative (Negative) 09/11/21 12:10 Urine Bilirubin 3+ (Negative) H 09/11/21 12:10 Urine Urobilinogen 4 mg/dL (Negative) H 09/11/21 12:10 Ur Leukocyte Esterase Negative (Negative) 09/11/21 12:10 Urine RBC 0-4 /hpf (0-2) H 09/11/21 12:10 Urine WBC 0-4 /hpf (0-5) H 09/11/21 12:10 Ur Squamous Epith Cells 0-4 /hpf (0-5) H 09/11/21 12:10 Amorphous Sediment 1+ /hpf 09/11/21 12:10 Urine Bacteria 1+ /hpf (NONE) H 09/11/21 12:10 Coarse Granular Casts 10-15 /lpf H 09/11/21 12:10 U Random Total Protein 54 mg/dL 09/11/21 12:10 Ur Random Sodium 20 mmol/L 09/11/21 12:10 Urine Creatinine 148 mg/dL (39-259) 09/11/21 12:10 Protein/Creatinin Ratio 0.36 mg/mg CR 09/11/21 12:10 Salicylates < 0.3 mg/dL (3-10) L 09/11/21 17:30 Urine Opiates Screen Negative ng/mL (Negative) 09/11/21 12:10 Acetaminophen < 5.0 ug/mL (10-30) L 09/11/21 17:30 Ur Barbiturates Screen Negative ng/mL (Negative) 09/11/21 12:10 Ur Phencyclidine Scrn Negative ng/mL (Negative) 09/11/21 12:10 Ur Amphetamines Screen Negative ng/mL (Negative) 09/11/21 12:10 U Benzodiazepines Scrn Negative ng/mL (Negative) 09/11/21 12:10 Urine Cocaine Screen Negative ng/mL (Negative) 09/11/21 12:10 U Marijuana (THC) Screen Negative ng/mL (Negative) 09/11/21 12:10 Ethyl Alcohol < 10 mg/dL (0-10) 09/11/21 11:20 Ethyl Alcohol Cancelled 09/11/21 11:20 VANNESA IFA Animal Tis Res Negative (NEGATIVE) 09/11/21 18:39 ENIO-1 Antibody <1.0 neg AI (<1.0 NEG) 09/11/21 18:39 SS-A Antibody <1.0 neg AI (<1.0 NEG) 09/11/21 18:39 SS-B Antibody <1.0 neg AI (<1.0 NEG) 09/11/21 18:39 Sm ([place]) Antibody <1.0 neg AI (<1.0 NEG) 09/11/21 18:39 ADVANCED MANUFACTURING ENGINEER Antibody <1.0 neg AI (<1.0 NEG) 09/11/21 18:39 Scl-70 Antibody <1.0 neg AI (<1.0 NEG) 09/11/21 18:39 Centromere B Antibody <1.0 neg AI (<1.0 NEG) 09/11/21 18:39 Thyroid Peroxidase Ab 1 IU/mL (<9) 09/11/21 18:39 Complement C3c 142 mg/dL (82-185) 09/11/21 18:39 Complement C4c 16 mg/dL (15-53) 09/11/21 18:39 Hepatitis A IgM Ab Non-reactive (Nonreactive) 09/11/21 11:20 Hep Bs Antigen Non-reactive (Nonreactive) 09/11/21 11:20 Hep B Core IgM Ab Non-reactive (Nonreactive) 09/11/21 11:20 Hepatitis C Antibody Non-reactive (Nonreactive) 09/11/21 11:20 HIV 1&2 Ab & HIV 1 Ag Non-reactive (Non-Reactiv) 09/11/21 11:20 HIV 1&2 Antibody Non-reactive (Non-Reactiv) 09/11/21 11:20 Vitals Last Vital Signs Temp 97.5 F L 09/13/21 13:05 Pulse 88 09/13/21 13:05 Resp 14 09/13/21 13:05 BP 93/48 09/13/21 13:05 Pulse Ox 98 09/13/21 13:05 Discharge Plan Discharge Patient Disposition: Hospice - Home Condition: Critical Prescriptions: New pantoprazole 40 mg tablet,delayed release (DR/EC) 40 mg PO DAILY Qty: 30 3RF folic acid 1 mg Tablet 1 mg PO DAILY Qty: 90 0RF Vitamin B-1 (mononitrate) 100 mg Tablet 100 mg PO DAILY Qty: 90 0RF Thera 400 mcg Tablet 1 tab PO DAILY Qty: 90 0RF lactulose 20 gram/30 mL Solution 20 g PO Q12H Qty: 2880 0RF Rx Instructions: Target 2-3 soft stools a day Discharge Orders: Discharge Order (Routine); Ordered 09/13/21 Ordered By: Gerard Hermosillo Referrals: Primary, provider [Other] - 4-7 days Discharge Diet: Advance as tolerated Discharge Activity: Increase activity as tolerated Patient Instructions: Thiamine (By mouth), Folic Acid (By mouth), Lactulose (By mouth), Pantoprazole (By mouth), Acute Liver Failure (GEN), Opioid Safety Activity Restrictions/Additional Instructions: Further care and coordination with hospice care, including pain, anxiety medications, but please reach out in case of any difficulties. Discharge Attestations Time Spent in Discharge Care*: greater than 30 min Quality Metrics Clinical Quality Measures [ No reported AMI, CVA or VTE this stay] Coding Level of Care Code Acute Chg FW DC note Diagnoses Acute liver failure K72.00 Hepatic coma status: without hepatic coma
[2021-09-14 17:38] LABS: COMPLEMENT, TOTAL (CH50) >60 U/mL (31-60)
[2021-09-15 14:27] LABS: DNA AB (DS) CRITHIDIA,IFA NEGATIVE (NEGATIVE)
== END 2021-09-13 13:06 | disposition hospice, home (50) | DRG 441 ==
LOC: ER 09-12 01:15 → MEDSURG 09-12 01:32
PROVIDERS: Emergency Medicine; Family Medicine; Internal Medicine Nephrology; Admitting Provider Hospitalist; Emergency Provider Emergency Medicine; Visit Provider Internal Medicine
DX: K72.00 Acute and subacute hepatic failure without coma (principal); K76.7 Hepatorenal syndrome; N17.9 Acute kidney failure, unspecified; Z51.5 Encounter for palliative care; Z66 Do not resuscitate; F10.20 Alcohol dependence, uncomplicated; K70.31 Alcoholic cirrhosis of liver with ascites
CPT/HCPCS: 36415; 36416; 71045; 74176; 76705; 80053; 80061; 80074; 80306; 80307; 81001; 82105; 82140; 82274; 82550; 82570; 82728; 82962; 83036; 83516; 83605; 83690; 83735; 84100; 84145; 84156; 84300; 84443; 84484; 84550; 85025; 85610; 85651; 85730; 86140; 86160; 86162; 86235; 86255; 86376; 87806; 93005; 93306; 94664; 96365; 96367; 96372; 99285; C9113; J1815; J2060; J2270; J2354; J2543; J3411; J3490; J7030; P9041